=== PATIENT | female | born 1950 | race Caucasian/White ===

== ENCOUNTER 2016-11-08 14:31 | Inpatient (IN) | payer MEDICARE ==
[~2016-11-08] VITALS: Ht 162.6 cm; Wt 90.3 kg
[2016-11-08] MEDS ORDERED: FLUO10CA7 PO (14:56)
[2016-11-08] MEDS ORDERED: TRIA1CAP3 PO (14:56)
[2016-11-08] MEDS ORDERED: METF500T9 PO (14:56)
[2016-11-08] MEDS ORDERED: LEVO50TA5 PO (14:56)
[2016-11-08] MEDS ORDERED: ATOR20TA58 PO (14:56)
--- NOTE | 2016-11-08 15:03 | RAD ---
Indication: Chest pain. Time of exam 1457 hours. Correlation is made with prior study from 09/02/2009. FINDINGS: The heart size is normal. The lungs are clear. No pleural effusion or pneumothorax is identified. The pulmonary vascularity is normal. IMPRESSION: No acute abnormality detected.
[2016-11-08 15:14] LABS: BASO # 0.1 x10^3/uL (0.0-0.2); BASO % 1 % (0-3); EOS % 2 % (0-3); HEMATOCRIT 36.4 % (36.0-47.0); HEMOGLOBIN 11.9 g/dL (12.0-15.5); LYMPH # 1.7 x10^3/uL (1.0-4.8); LYMPH % 17 % (24-48); MEAN CORPUSCULAR HEMOGLOBIN 26 pg (25-35); MEAN CORPUSCULAR HGB CONC 33 g/dL (31-37); MEAN CORPUSCULAR VOLUME 78 fL (79-100); MONO % 7 % (0-9); NEUT % 74 % (31-73); PLATELET COUNT 476 x10^3/uL (140-400); RED BLOOD COUNT 4.64 x10^6/uL (3.50-5.40); RED CELL DISTRIBUTION WIDTH 15.7 % (11.5-14.5); WHITE BLOOD COUNT 10.4 x10^3/uL (4.0-11.0)
[2016-11-08] MEDS ORDERED: NITROGLYCERIN SUBLINGUAL 0.4 MG BOTTLE OF 25. SL PRN (15:15)
[2016-11-08 15:22] LABS: INR 1.1 (0.8-1.1); PROTHROMBIN TIME PATIENT 13.5 SEC (11.7-14.0)
[2016-11-08] MEDS ORDERED: ASPIRIN ENTERIC COATED 325 MG TABLET.DR. PO ONE (15:30)
[2016-11-08 15:35] LABS: CALCIUM 9.4 mg/dL (8.5-10.1); CREATININE 1.1 mg/dL (0.6-1.0); GFR 49.8; POTASSIUM 3.3 mmol/L (3.5-5.1)
[2016-11-08 15:49] LABS: ALBUMIN 3.7 g/dL (3.4-5.0); ALBUMIN/GLOBULIN RATIO 0.9 (1.0-1.7); MAGNESIUM 2.1 mg/dL (1.8-2.4); TOTAL BILIRUBIN 0.4 mg/dL (0.2-1.0); TOTAL PROTEIN 7.8 g/dL (6.4-8.2)
[2016-11-08] MEDS ORDERED: POTASSIUM CHLORIDE 20 MEQ TABLET.ER. PO ONE (16:00)
[2016-11-08] MEDS ORDERED: fentaNYL PF VIAL 100 MCG/2 ML VIAL IV PRN (16:00)
[2016-11-08] MEDS ORDERED: ONDANSETRON PF 4 MG/2 ML VIAL. IV PRN (16:00)
--- NOTE | 2016-11-08 16:05 | PHYS DOC ---
Past Medical History Past Medical History: Diabetes-Type II, GERD, High Cholesterol, Hypothyroid Past Surgical History: Cholecystectomy, Hysterectomy, Other Additional Past Surgical Histo: breast reduction Alcohol Use: None Drug Use: None Adult General Chief Complaint Chief Complaint: CHEST PAIN HPI HPI Patient is a 66 year old female presenting to the emergency department for evaluation of chest pain dyspnea on exertion and generalized fatigue and malaise. The generalized fatigue and malaise have been going on for the past 2 weeks and she says that she has lost 30 pounds the chest pain and dyspnea on exertion started 2 days ago and it has persisted. The chest pain is pressure and heaviness in the center of her chest with no radiation but makes her short of breath and diaphoretic but no nausea vomiting. He says that she has had a stress test in the past but does not know what it is or when it was done. She is in no obvious distress but she is hypertensive with some pressure sensation in her chest. Review of Systems Review of Systems Constitutional: Denies fever or chills [] Eyes: Denies change in visual acuity, redness, or eye pain [] HENT: Denies nasal congestion or sore throat [] Respiratory: Denies cough. + shortness of breath [] Cardiovascular: + CP GI: Denies abdominal pain, nausea, vomiting, bloody stools or diarrhea [] : Denies dysuria or hematuria [] Musculoskeletal: Denies back pain or joint pain [] Integument: Denies rash or skin lesions [] Neurologic: Denies headache, focal weakness or sensory changes [] Current Medications Current Medications Current Medications Medications (Trade) Dose Ordered Sig/[facility] Start Time Stop Time Status Last Admin Dose Admin Aspirin (Ecotrin) 325 mg 1X ONCE 11/08/16 15:30 11/08/16 15:31 DC Nitroglycerin (Nitrostat) 0.4 mg PRN Q5MIN PRN 11/08/16 15:15 Potassium Chloride (Klor-Con) 40 meq 1X ONCE 11/08/16 16:00 11/08/16 16:01 DC Allergies Allergies Allergies Coded Allergies Type Severity Reaction Last Updated Verified morphine Allergy Mild Nausea 11/08/16 Yes Physical Exam Physical Exam Constitutional: Well developed, well nourished, no acute distress, non-toxic appearance. [] HENT: Normocephalic, atraumatic, bilateral external ears normal, oropharynx moist, no oral exudates, nose normal. [] Eyes: PERRLA, EOMI, conjunctiva normal, no discharge. [] Neck: Normal range of motion, no tenderness, supple, no stridor. [] Cardiovascular:Heart rate regular rhythm, no murmur [] Lungs & Thorax: Bilateral breath sounds clear to auscultation [] Abdomen: Bowel sounds normal, soft, no tenderness, no masses, no pulsatile masses. [] Skin: Warm, dry, no erythema, no rash. [] Back: No tenderness, no CVA tenderness. [] Extremities: No tenderness, no cyanosis, no clubbing, ROM intact, no edema. [] Neurologic: Alert and oriented X 3, normal motor function, normal sensory function, no focal deficits noted. [] Psychologic: Affect normal, judgement normal, mood normal. [] Current Patient Data Vital Signs Vital Signs Date Time Temp Pulse Resp B/P (MAP) Pulse Ox O2 Delivery O2 Flow Rate FiO2 11/08/16 14:40 98.4 89 18 182/98 (126) 97 Room Air 98.4 Lab Values Laboratory Tests Test 11/08/16 14:45 White Blood Count 10.4 x10^3/uL (4.0-11.0) Red Blood Count 4.64 x10^6/uL (3.50-5.40) Hemoglobin 11.9 g/dL (12.0-15.5) L Hematocrit 36.4 % (36.0-47.0) Mean Corpuscular Volume 78 fL (79-100) L Mean Corpuscular Hemoglobin 26 pg (25-35) Mean Corpuscular Hemoglobin Concent 33 g/dL (31-37) Red Cell Distribution Width 15.7 % (11.5-14.5) H Platelet Count 476 x10^3/uL (140-400) H Neutrophils (%) (Auto) 74 % (31-73) H Lymphocytes (%) (Auto) 17 % (24-48) L Monocytes (%) (Auto) 7 % (0-9) Eosinophils (%) (Auto) 2 % (0-3) Basophils (%) (Auto) 1 % (0-3) Neutrophils # (Auto) 7.6 x10^3uL (1.8-7.7) Lymphocytes # (Auto) 1.7 x10^3/uL (1.0-4.8) Monocytes # (Auto) 0.7 x10^3/uL (0.0-1.1) Eosinophils # (Auto) 0.2 x10^3/uL (0.0-0.7) Basophils # (Auto) 0.1 x10^3/uL (0.0-0.2) Prothrombin Time 13.5 SEC (11.7-14.0) Prothrombin Time INR 1.1 (0.8-1.1) PTT 33 SEC (24-38) Sodium Level 141 mmol/L (136-145) Potassium Level 3.3 mmol/L (3.5-5.1) L Chloride Level 99 mmol/L (98-107) Carbon Dioxide Level 33 mmol/L (21-32) H Anion Gap 9 (6-14) Blood Urea Nitrogen 18 mg/dL (7-20) Creatinine 1.1 mg/dL (0.6-1.0) H Estimated GFR (Cockcroft-Gault) 49.8 BUN/Creatinine Ratio 16 (6-20) Glucose Level 148 mg/dL (70-99) H Calcium Level 9.4 mg/dL (8.5-10.1) Magnesium Level 2.1 mg/dL (1.8-2.4) Total Bilirubin 0.4 mg/dL (0.2-1.0) Aspartate Amino Transferase (AST) 55 U/L (15-37) H Alanine Aminotransferase (ALT) 61 U/L (14-59) H Alkaline Phosphatase 171 U/L (46-116) H Creatine Kinase 60 U/L (26-192) Troponin I Quantitative < 0.017 ng/mL (0.000-0.055) RV-Kpf-I-Type Natriuretic Peptide 42 pg/mL (0-124) Total Protein 7.8 g/dL (6.4-8.2) Albumin 3.7 g/dL (3.4-5.0) Albumin/Globulin Ratio 0.9 (1.0-1.7) L Thyroid Stimulating Hormone (TSH) 2.908 uIU/mL (0.358-3.74) Laboratory Tests 11/08/16 14:45 Laboratory Tests 11/08/16 14:45 EKG EKG Normal sinus rhythm at 90 beats per minutes with leftward axis no obvious ST elevation or depression and normal T waves. Radiology/Procedures Radiology/Procedures Indication: Chest pain. Time of exam 1457 hours. Correlation is made with prior study from 09/02/2009. FINDINGS: The heart size is normal. The lungs are clear. No pleural effusion or pneumothorax is identified. The pulmonary vascularity is normal. IMPRESSION: No acute abnormality detected. DICTATED and SIGNED BY: GERRY GARCIA MD DATE: 11/08/16 9546 Course & Med Decision Making Course & Med Decision Making Patient with typical chest pain so she was given nitroglycerin which helped her pain and aspirin as well. Given her age and colitides she will be admitted for further observation and treatment. Dragon Disclaimer Dragon Disclaimer This electronic medical record was generated, in whole or in part, using a voice recognition dictation system. Departure Departure Impression: Primary Impression: Chest pain Additional Impressions: LEAHY (dyspnea on exertion) Hypokalemia Transaminitis Disposition: ADMITTED INPATIENT Admitting Physician: Feng Gregory Condition: IMPROVED Referrals: ZEE ACE (PCP) Problem Qualifiers Primary Impression: Chest pain Chest pain type: unspecified Qualified Codes: R07.9 - Chest pain, unspecified TOVA BOSCH DO Nov 08, 2016 16:05
[2016-11-08 17:38] VITALS: BP 133/72
[2016-11-08 17:48] VITALS: BP 133/72
[2016-11-08 17:54] VITALS: BP 133/72
[2016-11-08] MEDS ORDERED: FLUO20CA8 PO (18:01)
[2016-11-08 19:30] VITALS: BP 120/73
[2016-11-08] MEDS ORDERED: ACETAMINOPHEN 325 MG TABLET. PO PRN (21:00)
[2016-11-08] MEDS ORDERED: ATORVASTATIN CALCIUM 20 MG TABLET PO SCH (21:00)
[2016-11-08 23:17] VITALS: BP 129/81
[2016-11-09 03:42] VITALS: BP 125/53
[2016-11-09 04:18] LABS: BASO # 0.1 x10^3/uL (0.0-0.2); BASO % 1 % (0-3); EOS % 3 % (0-3); HEMATOCRIT 34.8 % (36.0-47.0); HEMOGLOBIN 11.4 g/dL (12.0-15.5); LYMPH % 26 % (24-48); MEAN CORPUSCULAR HEMOGLOBIN 26 pg (25-35); MEAN CORPUSCULAR HGB CONC 33 g/dL (31-37); MEAN CORPUSCULAR VOLUME 78 fL (79-100); MONO % 8 % (0-9); NEUT % 63 % (31-73); PLATELET COUNT 411 x10^3/uL (140-400); RED BLOOD COUNT 4.47 x10^6/uL (3.50-5.40); RED CELL DISTRIBUTION WIDTH 16.3 % (11.5-14.5); WHITE BLOOD COUNT 7.6 x10^3/uL (4.0-11.0)
[2016-11-09 04:40] LABS: CALCIUM 9.3 mg/dL (8.5-10.1); GFR 55.6; POTASSIUM 3.2 mmol/L (3.5-5.1)
[2016-11-09 07:00] VITALS: BP 132/69
[2016-11-09] MEDS ORDERED: LEVOTHYROXINE 50 MCG TABLET PO SCH (07:00)
--- NOTE | 2016-11-09 07:47 | EKG ---
[facility] [address] [place] [address] Test Date: 2016-11-08 Test Time: 14:42:09 Pat Name: JAM WEI Department: Room: 3 1 Gender: F Equipment Specialist: : 1950 Requested By: TOVA BOSCH Order Number: [id number] Reading MD: Lopez Cash Measurements Intervals [place] Rate: 90 P: 29 HI: 190 QRS: -10 QRSD: 62 T: 20 QT: 382 QTc: 472 Interpretive Statements SINUS RHYTHM Electronically Signed On 11-09-2016 17:49:25 CDT by Lopez Cash
--- NOTE | 2016-11-09 08:00 | ACF ---
Admission Forms Criteria CHEST PAIN Clinical Indications for Admission to Inpatient Care (Place 'X' for any and all applicable criteria): Admission is indicated for chest pain and ANY ONE of the following(1)(2)(3)(4)(5 ): [ ]I. Angina with acute coronary syndrome (Also use Myocardial Infarction or Angina guideline) [ ]II. Hemodynamic instability [X]III. Angina needing acute intervention as indicated by ALL of the following( 11)(12): [X]a) Unstable angina is present as indicated by angina that is ANY ONE of the following: [X]i) New onset [ ]ii) Nocturnal [ ]iii) Prolonged at rest [ ]iv) Progressive [X]b) Angina warrants acute intervention as indicated by ANY ONE of the following: [ ]i) Recurrent angina (e.g, not responding as previously to treatment) [ ]ii) Angina at rest or with low-level activities despite initial medical therapy [ ]iii) New or presumably new ST-segment depression on ECG [ ]iv) Signs or symptoms of heart failure (eg, dyspnea, pulmonary edema) [ ]v) New or worsening mitral regurgitation [ ]vi) Hemodynamic instability [ ]vii) Dangerous arrhythmia (eg, sustained ventricular tachycardia) [ ]viii) History of percutaneous coronary intervention within 6 months [ ]ix) History of coronary artery bypass graft surgery [ ]x) SHERRY risk score of 2 or greater[A] [X]xi) History of Diabetes(14) [ ]xii) High-risk cardiac ischemia findings on noninvasive testing (e.g, echocardiogram, treadmill testing, nuclear scan) [ ]xiii) Chronic renal insufficiency (ie, estimated GFR less than 60 mL/min/1.732m) [ ]xiv) Left ventricular ejection fraction less than 40% [ ]IV. Evidence of NH (eg, cardiac biomarkers positive, ST-segment elevation on ECG) also use Myocardial Infarction Criteria Form. [ ]V. Pulmonary edema [ ]. Respiratory distress [ ]VII. Chest pain indicative of serious diagnosis other than coronary artery disease (eg, aortic dissection) [ ]VIII. Contraindications and/or Inappropriate clinical situations for Observational Care in patients with Chest Pain, when ANY ONE of the following is required: [ ]a) Patient with risk factor for pulmonary embolism, acute coronary syndrome and myocardial infarction (18) [ ]b) Patient with Pulmonary embolism require an average LOS of 4.3 days, therefore emergency department observation management is inappropriate 18,23 [ ]c) Painful condition/s in the elderly, have the highest rate of recidivism after emergency department observation management (10.8%) 20,21,22 [ ]d) Elevated cardiac biomarker requires intensive and exhaustive care (19) [ ]IX. General contraindications and/or Inappropriate clinical situations for Observational Care in patients with Chest Pain, when ANY ONE of the following is required: [ ]a) Prediction of prolongation of LOS based on ANY ONE of the following may be considered as a contraindication for observational care 2, 3, 4, 5, 6, 7, 8, 9, 10, 11 [ ]i) Age > 65 yrs. [ ]ii) Patient arriving by ambulance [ ]iii) Patient with high acuity [ ]iv) Patient requiring vital sign monitoring [ ]v) Patient on IV medication [ ]b) Systolic blood pressures 180mmHg 3,12 [ ]c) Patient with altered mental status including delirium and other alteration of consciousness, (3) [ ]d) Patient whose discharge disposition will be to a penitentiary home or rehabilitation home should not be managed in Emergency Department Observation Unit. CMS rule requires 3 days hospital stay before such placement. 3,13 [ ]e) Patient with failure to thrive due to broad array of etiologies 3,16,17 [ ]f) Inability to ambulate 3,14 Extended stay beyond goal length of stay may be needed for (1)(28): [ ]a) Specific condition diagnosed after evaluation (eg, pulmonary embolism, aortic dissection) [ ]b) Unstable angina [ ]c) Continued suspicion of acute coronary syndrome with inability to complete needed cardiac evaluation (eg, patient clinically unable to undergo stress testing) [ ]d) Myocardial infarction (Contents from ANGINA and CHEST PAIN clinical indications for admission to inpatient care have been integrated in this form) The original [email or web address] content created by [email or web address] has been revised. The portions of the content which have been revised are identified through the use of italic text or in bold, and [employer] has neither reviewed nor approved the modified material. All other unmodified content is copyright [employer]. Please see references footnoted in the original [facility] edition 2016 Admission Criteria Met?: Yes ADRIENNE WOOD Nov 09, 2016 08:00
--- NOTE | 2016-11-09 08:06 | PDOC ---
Provider Note Provider Note Full note to follow. atypical chest pain, palpitations, dizziness. Last stress 2 yrs ago. Multiple risk factors, HTN, Chol and age/obesity Will repeat stress. Consider outpt event monitor Will f/u after stress results. Thanks for consult. JATIN JEFF MD Nov 09, 2016 08:06
[2016-11-09] MEDS ORDERED: TRIAMTERENE/HCTZ 37.5/25MG TABLET. PO SCH (09:00)
[2016-11-09] MEDS ORDERED: FLUoxetine HCL 20 MG CAPSULE PO SCH (09:00)
[2016-11-09] MEDS ORDERED: POTASSIUM CHLORIDE 20 MEQ TABLET.ER. PO SCH (09:00)
--- NOTE | 2016-11-09 09:52 | PDOC ---
Provider Note Provider Note Patient seen. History and Physical and combined discharge summary dictated. See dictation# [id number]. Ok per database specialist to get stress test as outpatient with . KRISTIAN CARMICHAEL MD Nov 09, 2016 09:52
--- NOTE | 2016-11-09 09:54 | DISCH ---
DISCHARGE INSTRUCTIONS Condition on Discharge Condition on Discharge: Stable Activity After Discharge Activity Instructions for Disc: Activity as tolerated Diet after Discharge Diet after Discharge: Cardiac, Diabetic No Calorie Level Diet Texture: Regular Checks after Discharge Checks after discharge: Check blood sugar, ac/hs Contacting the DRJesus after DC Call your doctor for: Concerns you may have Follow-Up Follow up with: in 3-4 days. KRISTIAN CARMICHAEL MD Nov 09, 2016 09:54
[2016-11-09] MEDS ORDERED: POTA20TA4 PO (09:56)
[2016-11-09] MEDS ORDERED: ASPI81TA9 PO (09:56)
[2016-11-09] MEDS ORDERED: ASPIRIN ENTERIC COATED 81 MG TABLET.DR. PO SCH (10:00)
[2016-11-09 10:15] VITALS: BP 148/81
[2016-11-09 10:17] VITALS: BP 138/76
[2016-11-09 10:19] VITALS: BP 94/57
--- NOTE | 2016-11-09 10:27 | HP ---
ADMIT DATE: 11/08/2016 This is a combined history and physical and discharge summary note. PRIMARY CARE PHYSICIAN: Dr. Velasco. HISTORY OF PRESENT ILLNESS: This 66-year-old female presented to [facility] because of symptoms of chest pains on and off along with dyspnea, occasional dizziness, especially when she gets out of bed, and occasional episodes of palpitations and sweating, sometimes, at rest, even when she is at home in bed at night. She also has had some increase in anxiety. She denies any symptoms of heartburn, nausea, vomiting, abdominal pain, fever, cold, cough, or congestion. The patient has seen Dr. Perry at [facility] 2 years ago and her stress test at that time was negative. This morning, she is feeling better and she does not have any symptoms. The patient was admitted to the hospital because of chest pains. REVIEW OF SYSTEMS: Systems review as noted in the history of present illness. Other systems reviewed and are negative. Her symptoms are not usually related to exertion. Symptoms have been started 2 weeks ago. The patient is feeling better now. PAST MEDICAL HISTORY: The patient has a history of diabetes type 2, gastroesophageal reflux disease, hyperlipidemia, and hypothyroidism. PAST SURGICAL HISTORY: History of cholecystectomy and hysterectomy and breast reduction surgery. SOCIAL HISTORY: No history of smoking, alcoholism, or drug abuse. FAMILY HISTORY: Negative for any significant conditions. The patient denies any heart problems or stroke in the family. ALLERGIES: THE PATIENT IS ALLERGIC TO MORPHINE THAT CAUSES NAUSEA. MEDICATIONS: I reviewed the medications. PHYSICAL EXAMINATION: VITAL SIGNS: Temperature 97.7, pulse 90 per minute, respirations 18 per minute, blood pressure 132/69. GENERAL: The patient is alert, oriented, not in any acute distress. She is obese. SKIN: Warm and dry. There is no cyanosis. HEENT: Pupils reacting to light. Conjunctivae pink. Sclerae white. HEENT: Unremarkable except for slight coating on the tongue. NECK: Supple. JVP normal. No thyromegaly. Trachea midline. LUNGS: Clear. CARDIOVASCULAR: S1, S2 regular, . ABDOMEN: Soft, nontender, no guarding, no rigidity. Bowel sounds present. EXTREMITIES: No edema. CENTRAL NERVOUS SYSTEM: Moves all extremities, alert, oriented, slightly anxious, no acute changes noted. LABORATORY FINDINGS: Chest x-ray showed no acute changes. Sodium 141; potassium of 3.3 yesterday, is 3.2 today; glucose 148; BUN 18; creatinine 1.1. AST 55, ALT 61, alkaline phosphatase 171. Troponin less than 0.017, total protein 7.8, albumin 3.7. Potassium today is 3.2, glucose 200 and 157. Troponin, repeat level is 0.017. TSH 2.908. Reportedly, I am not able to review the EKG, but it did not show any acute changes. IMPRESSION: 1. Chest pain. This may be atypical per costume technician. 2. Hypokalemia. 3. Elevated LFTs. 4. Diabetes mellitus type 2. 5. Anxiety. 6. Hypothyroidism. TSH stable. PLAN: Regional Branch Manager recommended stress test and event recorder. The patient states that she is feeling fine and she would like to actually be discharged now and see Dr. Perry, her costume technician as outpatient, and get whatever cardiac workup that is needed. I have advised her to continue potassium chloride. I have given her a prescription for potassium chloride 20 mEq daily. Continue other home medications. Follow up with Dr. Velasco in 4 days and follow up LFTs and potassium level. She will also probably need an event recorder and a stress test. I have also advised her to start on baby aspirin 81 mg daily. Avoid exertion until cardiac workup is finished. Call if symptoms persist or recur. DISPOSITION: Home. For other details, please refer to the discharge orders. Activity as tolerated to avoid major exertion. MEDICATION LIST: Please refer to the discharge medication list. KRISTIAN CARMICHAEL MD DR: VAISHNAVI/rebel JOB#: [id number] / [id number] ZEE Porras VINAYA MD
[2016-11-09] MEDS ORDERED: metFORMIN XR 500 MG TAB.ER.24H PO SCH (17:00)
--- NOTE | 2016-11-09 19:03 | CONS ---
DATE OF CONSULTATION: 11/09/2016 REASON FOR CONSULTATION: Chest pain. HISTORY OF PRESENT ILLNESS: A 66-year-old woman who presents to the hospital in the setting of chest pain along with various degree of dyspnea. She also reports some occasional palpitations and dizziness. In this setting, due to persistent symptoms she presented to the hospital. She has not had any syncope. With respect to cardiovascular disease, she does not recall any prior coronary interventions. She had a stress test approximately [address] Perry at [facility]. This morning she reports her symptoms are better, although not completely resolved. Her main issue at this time appears to be dizziness at various times throughout the day. She does not have any exertional angina or dyspnea to speak of. PAST MEDICAL HISTORY: Hypertension, dyslipidemia, GERD, diabetes, obesity. SOCIAL HISTORY: No alcohol, tobacco or illicit drug use. FAMILY HISTORY: Noncontributory. REVIEW OF SYSTEMS: Negative for 10 out of 14 systems reviewed, unless otherwise mentioned above in HPI. ALLERGIES: MORPHINE. CURRENT CARDIOVASCULAR MEDICATIONS: 1. Aspirin 81 mg daily. 2. Triamterene/hydrochlorothiazide 37.5/25. 3. Atorvastatin 20 mg daily. PHYSICAL EXAMINATION: VITAL SIGNS: Afebrile, 69, 94/57, 94% on room air. GENERAL: She is alert and oriented, in no acute distress. HEAD AND NECK: Unremarkable. HEART: Regular rate and rhythm without any murmurs, rubs, gallops. LUNGS: Clear to auscultation. ABDOMEN: Soft, nontender, nondistended. EXTREMITIES: No clubbing, cyanosis or edema. NEUROLOGIC: No focal deficits. MUSCULOSKELETAL: No trauma. DIAGNOSTIC STUDIES: Hemoglobin 11.4, platelets 411. Troponin negative x 2, potassium 3.2, creatinine 1.0, INR 1.1. Chest x-ray is negative for any acute pathology. EKG is unremarkable and does not reveal any evidence of ST-T wave changes, cannot rule out prior inferior infarct. IMPRESSION: 1. Atypical chest pain. 2. Palpitations/dizziness. 3. Hypertension. 4. Dyslipidemia. 5. Obesity. RECOMMENDATIONS: I had a discussion with the patient in regards to her risk factors and atypical symptoms. She certainly appears to require an event monitor to rule out any significant arrhythmia as her presenting pathology. In the setting of her multiple risk factors and approximately 2 years since her last stress test, we discussed possibly obtaining a stress test. After initial evaluation, I was told by the nurse that the patient wishes to go home and given that her cardiac enzymes are negative and her EKG is not acute, it was reasonable for her to obtain an outpatient stress test. Thank you for this consultation. Please call with any further questions. JATIN JEFF MD DR: YUNIOR/rebel JOB#: [id number] / [id number] FATIMAH
== END 2016-11-09 10:45 | disposition home or self-care (01) | DRG 313 ==
LOC: ER 14:31 → 6 SOUTH 16:19
PROVIDERS: ADMIT Internal Medicine; ATTEND Internal Medicine
DX: R07.89 Other chest pain (principal); E78.00 Pure hypercholesterolemia, unspecified; E78.5 Hyperlipidemia, unspecified; E11.9 Type 2 diabetes mellitus without complications; I10 Essential (primary) hypertension; E03.9 Hypothyroidism, unspecified; E87.6 Hypokalemia; K21.9 Gastro-esophageal reflux disease without esophagitis; F41.9 Anxiety disorder, unspecified; E66.9 Obesity, unspecified; Z90.49 Acquired absence of other specified parts of digestive tract; Z90.710 Acquired absence of both cervix and uterus; Z88.5 Allergy status to narcotic agent; Z68.34 Body mass index [BMI] 34.0-34.9, adult; Z79.899 Other long term (current) drug therapy
CPT/HCPCS: 36415; 71010; 80048; 80053; 82550; 82962; 83735; 83880; 84443; 84484; 85027; 85610; 85730; 93005; 99285-25

== ENCOUNTER → 2017-03-20 | Outpatient (CLI) | payer MEDICARE ==
[~2017-03-20] MED LIST: ASPI-612 PO; ATOR20TA58 PO; FLUO10CA7 PO; FLUO20CA8 PO; LEVO50TA5 PO; METF500T9 PO; POTA20TA4 PO; TRIA1CAP3 PO
--- NOTE | 2017-03-20 16:27 | RAD ---
Indication pain. AP and lateral views of both the right and left calcaneus were obtained. Views of the right calcaneus demonstrate a very large spur off the posterior and superior portion of the calcaneus. A smaller spur is seen at the heel. No acute finding is seen. Views of the left calcaneus demonstrate a moderately large spur off the posterior and superior portion of the calcaneus, not as large as on the contralateral right side. A smaller spur is seen at the heel. No acute finding is seen. IMPRESSION: Moderately large spurs involving both the right and left calcaneus as outlined above
== END | disposition home or self-care (01) ==
LOC: LAB 13:00
PROVIDERS: ATTEND Family Medicine
DX: M77.32 Calcaneal spur, left foot (principal); M77.31 Calcaneal spur, right foot
CPT/HCPCS: 73650

== ENCOUNTER → 2017-03-30 | Outpatient (CLI) | payer MEDICARE ==
[~2017-03-30] MED LIST changes: +IBUP-1060 PO; +IOHEXOL 180 MG/ML 10 ML VIAL. ONE; +TRAM50TA PO; +methylPREDNISolone ACETATE 40 MG/ML VIAL. ONE; +methylPREDNISolone ACETATE 80 MG/ML VIAL. ONE
--- NOTE | 2017-03-30 18:42 | PAIN ---
DATE OF SERVICE: 03/30/2017 INITIAL CONSULTATION CHIEF COMPLAINT: Low back pain. HISTORY OF PRESENT ILLNESS: This is a 66-year-old female who presents with history of pain in low back and into the bilateral lower extremities, right greater than left, with radiation to the lateral thighs, posterior thighs as well as the medial lower leg. Again, more intermittent than the back pain, which is present at all times, but certainly present bilaterally, worse on the right. The patient reports it has been going on for many years, worse over the past year or so. She reports she has had some chiropractic treatment in the past. No formal physical therapies recently. She is doing some stretching on her own that they have given her at her chiropractic's office. The patient has tried tramadol, ibuprofen, cyclobenzaprine, all of which were helpful to some extent by about 20% to 30%. She has had all 3 of these as early as yesterday. The patient reports it awakens her from sleep at night occasionally, but not every night. It does not affect her bowel or bladder control, but does affect her ability to walk significantly. The patient reports the right side again becoming more weak more quickly, much more easily fatigued on the left side. The patient describes the pain as constant, sharp, stabbing, shooting, throbbing with tingling, radiating numbness as well as burning and aching in the low back bilaterally and into the right leg greater than left. The patient rates her disability rate from 0-10, 10 being the worst and 8 with family and home responsibilities, social activity and occupation, 10 with recreation, 5 with self care and life support activities. The patient did have an MRI scan that is dated 02/2009, showing multilevels of disk degenerative disease including disk protrusions and neural foraminal narrowing on the left side at L4-L5 and L5-S1. The patient did have some plain films more recently that were in 2014, showing severe degenerative findings at the lower facet joints as well as disk space narrowing, greatest on the right at L3-L4 and moderately large anterolateral osteophytes present at multiple levels, particularly on the right at L2-L3 and on the left L5-S1. PAST MEDICAL HISTORY: Significant for type 2 diabetes, hypothyroidism, anemia, hypertension, hyperlipidemia, dizziness, arthritis. PREVIOUS SURGERY: Includes hysterectomy, breast reduction, cholecystectomy and left knee surgery through a scope in 2006. CURRENT MEDICATIONS: Include atorvastatin, triamterene, levothyroxine, tramadol, ibuprofen, metformin and fluoxetine. ALLERGIES: THE PATIENT IS ALLERGIC TO MORPHINE. FAMILY HISTORY: Significant for anemia. SOCIAL HISTORY: The patient does not smoke, does not drink alcohol. She is single, reports she lives on her own locally in [place], [place], and is currently retired. REVIEW OF SYSTEMS: The patient's review of systems is positive for those items mentioned in history of present illness. All systems reviewed and otherwise negative. It is complete, full and well documented on the patient's chart. PHYSICAL EXAMINATION: VITAL SIGNS: The patient's blood pressure 179/115, pulse is 111, respirations 18, temperature 98.2 degrees Fahrenheit, height is 5 feet 4 inches, weight is 201 pounds. GENERAL: The patient is awake, alert, oriented, appropriate, very pleasant demeanor. HEENT: Head shows normocephalic, atraumatic. Extraocular movements are intact, symmetrical. Oral cavity: Mucous membranes moist and pink. Dentition is intact. NECK: Shows anterior throat supple without palpable lymphadenopathy noted. Swallow reflex is symmetrical. CHEST: Shows normal on inspection. Breath sounds clear to auscultation bilaterally. HEART: Shows S1 and S2 clear. No murmurs auscultated. ABDOMEN: Obese, soft, nontender, nondistended. No palpable organomegaly. No rebound or guarding demonstrated. BACK: Shows spine grossly midline, normal-appearing cervical lordotic curvature, thoracic kyphotic curvature and lumbar lordotic curvature. No previous bruises, lesions, rashes or scars are noted. The patient shows some moderate tenderness with palpation in the lumbar paraspinous musculature bilaterally, but is symmetrical without evidence of atrophy or hypertrophy. The patient's back shows no tenderness over the spinous processes, sacrum or sacroiliac regions. The patient has good rotation and motion of the lumbar spine, both laterally as well as extension and flexion without difficulty, greater than 10 degrees right and left and extension greater than 10 degrees, forward flexion to 45 degrees without pain reported. LOWER EXTREMITIES: Showed deep tendon reflexes at 1+ in the patellar and tendocalcaneus tendons. Motor exam is strong with 5/5 dorsiflexion, extension, quadriceps and hamstring flexion. Peripheral pulses are 1+ posterior tibial and dorsalis pedis pulses. No peripheral edema is noted. No clubbing, no cyanosis. Lower extremities are warm and dry to touch, equal in color and appearance. Straight leg raise noted to be positive on the right at about 40-45 degrees, left is negative. This is decreased with knee flexion on the right side, but not completely relieved. Gaenslen and Fareed maneuvers are negative bilaterally for pain reproduction. The patient is able to stand on her toes without significant difficulty or loss of balance. She is walking with a slight shuffling gait, appears to favor the right lower extremity when she is ambulating, but not using any assistive devices such as canes or walkers to ambulate. IMPRESSION: 1. This is a 66-year-old female with a many year history of low back and bilateral lower extremity pain, worse on the right, worse over the past 1 year. 2. Old spine films and MRIs as noted. 3. Hypertension. 4. Type 2 diabetes. 5. Arthritis. PLAN: Options were discussed with the patient including conservative medical management, physical therapy, interventional techniques, she would like to pursue interventional techniques. We discussed a lumbar epidural steroid injection using description as well as anatomical models to describe the procedure. Risks were discussed including but not limited to bleeding, infection, possibility of epidural hematoma and subsequent neurologic compromise, dural puncture, headaches, spinal cord and/or nerve damage, side effects of steroid medication and poor results regarding pain control. The patient understands and wishes to proceed. The patient will return to clinic in approximately 2 weeks for followup. She was counseled on return appointment, activity level and side effects to be aware of. DIAGNOSES: Lumbar radiculopathy with lumbar degenerative disk disease. PROCEDURES: Lumbar epidural steroid injection in translaminar approach at the L4-L5 level using C-arm fluoroscopic guidance, a sterile prep and drape using local anesthetic. MEDICATIONS INJECTED: Total of 120 mg Depo-Medrol, plus 10 mL of preservative-free normal saline and 2 mL Isovue for contrast. CONDITION AT DISCHARGE: Stable. The patient tolerated procedure well, had no complications. The patient will follow up in approximately 2 weeks as noted. Discussed the patient's blood pressure, she will follow up with her primary care physician regarding this as it was elevated on two different readings in our office today. The patient also will check her blood sugar and was warned that this may increase after the procedure as well. ANGELLA MACK MD DR: ROM/rebel JOB#: [id number] / [id number] ZEE Porras
== END | disposition home or self-care (01) ==
LOC: PNCL 08:24
PROVIDERS: ATTEND Anesthesiology
DX: M51.16 Intervertebral disc disorders with radiculopathy, lumbar region (principal); E11.9 Type 2 diabetes mellitus without complications; E03.9 Hypothyroidism, unspecified; D64.9 Anemia, unspecified; I10 Essential (primary) hypertension; E78.5 Hyperlipidemia, unspecified; M19.91 Primary osteoarthritis, unspecified site; E78.00 Pure hypercholesterolemia, unspecified; Z90.710 Acquired absence of both cervix and uterus; Z90.49 Acquired absence of other specified parts of digestive tract; Z88.6 Allergy status to analgesic agent; Z87.39 Personal history of other diseases of the musculoskeletal system and connective tissue
CPT/HCPCS: 62323; J1030; J1040

== ENCOUNTER → 2017-09-16 | Outpatient (CLI) | payer MEDICARE ==
[~2017-09-16] MED LIST changes: -ASPI-612 PO; -ATOR20TA58 PO; -FLUO10CA7 PO; -FLUO20CA8 PO; -IBUP-1060 PO; +IOHEXOL 180 MG/ML 10 ML VIAL.; -IOHEXOL 180 MG/ML 10 ML VIAL. ONE; -LEVO50TA5 PO; -METF500T9 PO; -POTA20TA4 PO; -TRAM50TA PO; -TRIA1CAP3 PO; +methylPREDNISolone ACETATE 40 MG/ML VIAL.; -methylPREDNISolone ACETATE 40 MG/ML VIAL. ONE; +methylPREDNISolone ACETATE 80 MG/ML VIAL.; -methylPREDNISolone ACETATE 80 MG/ML VIAL. ONE
== END | disposition home or self-care (01) ==
LOC: PNCL 11:16
DX: M51.16 Intervertebral disc disorders with radiculopathy, lumbar region (principal)
CPT/HCPCS: 62323; J1030; J1040; Q9965

== ENCOUNTER → 2018-01-21 | Outpatient (CLI) | payer MEDICARE ==
[~2018-01-21] MED LIST changes: +ASPI-612 PO; +ATOR20TA58 PO; +FLUO10CA7 PO; +FLUO20CA8 PO; +IBUP-1060 PO; -IOHEXOL 180 MG/ML 10 ML VIAL.; +LEVO50TA5 PO; +METF500T9 PO; +POTA20TA4 PO; +TRAM50TA PO; +TRIA1CAP3 PO; -methylPREDNISolone ACETATE 40 MG/ML VIAL.; -methylPREDNISolone ACETATE 80 MG/ML VIAL.
--- NOTE | 2018-01-21 16:40 | RAD ---
MR of the left shoulder Indication: Left shoulder pain after a fall with dislocation 2 months ago. Technique: Standard multiplanar sequences are obtained. Findings: Artifact: Mild motion degradation Acromioclavicular joint: Mildly degenerative. Rotator cuff: * Supraspinatus-infraspinatus tendon: Complete full-thickness rupture of the supraspinatus and anterior infraspinatus tendon. Retraction measures 3 cm. Tendinosis and partial tearing through the posterior infraspinatus tendon. Acute intramuscular edema, greatest at the infraspinatus. * Subscapularis tendon: High-grade tear * Muscle bulk: Moderate atrophy with volume loss and fatty infiltration. * Subacromial subdeltoid bursa: Mild effusion. Fluid: Small glenohumeral effusion. Glenohumeral cartilage: Mild degenerative change. Labrum: No evidence of labral detachment. Biceps tendon: Medial dislocation, into the anterior glenohumeral joint. Bones: Marrow change with edema at the greater tuberosity, compatible with marrow contusion or nondisplaced fracture. Soft tissue: No acute findings. Impression: 1. Large rotator cuff tear. Complete retracted rupture of supraspinatus and anterior infraspinatus tendon, high-grade subscapularis tendon tear. 2. Medial biceps tendon dislocation. 3. Abnormality at the greater tuberosity of the humerus, compatible with marrow contusion or nondisplaced fracture. Electronically signed by: Sheldon Nelson MD (01/21/2018 4:35 PM) [email or web address]
== END | disposition home or self-care (01) ==
LOC: MRI 13:45
PROVIDERS: ATTEND Physician Assistant Surgical
DX: S46.012A Strain of muscle(s) and tendon(s) of the rotator cuff of left shoulder, initial encounter (principal); W19.XXXA Unspecified fall, initial encounter; Y92.89 Other specified places as the place of occurrence of the external cause; Y93.89 Activity, other specified; Y99.8 Other external cause status
CPT/HCPCS: 73221

== ENCOUNTER → 2018-05-26 | Outpatient (CLI) | payer MEDICARE ==
[~2018-05-26] MED LIST changes: +IOHEXOL 180 MG/ML 10 ML VIAL. ONE; +methylPREDNISolone ACETATE 40 MG/ML VIAL. ONE; +methylPREDNISolone ACETATE 80 MG/ML VIAL. ONE
--- NOTE | 2018-05-26 20:05 | PAIN ---
DATE OF SERVICE: 05/26/2018 DIAGNOSIS: Lumbar radiculopathy with lumbar degenerative disk disease. HISTORY OF PRESENT ILLNESS: The patient is a 67-year-old female who returns for followup, last seen 09/16/2017. The patient was doing very well after last injection, near 100% improvement, reports the pain began to return now over about the last 3-4 weeks. The patient reports it in the low back, more in the right lower extremity posterior lateral thigh, lateral anterior thigh, medial thigh, but mostly across the low back. The patient reports to 8-9 on a scale of 10 on average and at its worst, is a 7 at its least and is an 8 today. The patient reports it is aching, sharp, shooting, stabbing, becoming more constant and more severe, more unbearable. Initially, she was increasing activity with greater ease and comfort, walking greater distances, doing greater activities at home and traveling with greater ease and comfort, now the pain is beginning to return. It is waking her from sleep at night about every 2-3 hours. She needs to reposition and get back to sleep, but it is still quite bothersome. The patient reports no new motor or sensory deficits, no new bowel or bladder incontinence or other complaints. PHYSICAL EXAMINATION: VITAL SIGNS: The patient's blood pressure 154/82, pulse 77, respirations 18, temperature 97.6 degrees Fahrenheit, height is 5 feet 11 inches, weight 190 pounds. GENERAL: The patient is awake, alert, oriented, appropriate, very pleasant demeanor. HEENT: Head shows normocephalic, atraumatic. Extraocular movements are intact and symmetrical. Oral cavity: Mucous membranes moist and pink. Dentition intact. NECK: Shows anterior throat supple without palpable lymphadenopathy noted. Swallow reflex symmetrical. CHEST: Shows normal with inspection. Breath sounds clear to auscultation bilaterally. HEART: Shows S1, S2 clear. No murmurs auscultated. ABDOMEN: Soft, nontender, nondistended. No palpable organomegaly is noted. No rebound or guarding demonstrated. BACK: Shows spine grossly in the midline. Normal appearing thoracic kyphosis. Some slight flattening of lumbar lordotic curvature. Lumbar paraspinous muscle shows symmetrical on inspection. On palpation shows some moderate tenderness but only diffusely without significant radiation. EXTREMITIES: The patient's lower extremities show deep tendon reflexes at 1+ in the patellar and tendo calcaneus tendons are equal. Motor exam is strong with dorsiflexion, extension, quadriceps and hamstring flexion all rated at 5/5 and equal. Peripheral pulses are 1+ posterior tibial. No peripheral edema is noted. Options were discussed with the patient. The patient's old chart was reviewed as her current medication regimen updated. Current review of systems updated today as well. We will proceed with a second in the series of lumbar epidural steroid injection today with fluoroscopic guidance. Risks were again discussed including, but not limited to bleeding, infection, possibility of epidural hematoma and subsequent neurological compromise, dural puncture, headaches, spinal cord and/or nerve damage, side effects of steroid medication and poor results regarding pain control. The patient understands and wished to proceed. The patient to return to clinic in approximately 2 weeks for followup, was counseled as to return appointment, activity level and side effects to be aware of. DIAGNOSIS: Lumbar radiculopathy with lumbar degenerative disk disease. PROCEDURE: Lumbar epidural steroid injection, translaminar approach L4-L5 level using C-arm fluoroscopic guidance under sterile prep and drape using local anesthetic. MEDICATION INJECTED: A total of 120 mg Depo-Medrol plus 10 mL of preservative-free normal saline and 2 mL of Isovue for contrast. CONDITION AT DISCHARGE: Stable. The patient tolerated the procedure well, had no complications. ANGELLA MACK MD DR: ROM/rebel JOB#: [id number] / [id number]
== END | disposition home or self-care (01) ==
LOC: PNCL 12:54
PROVIDERS: ATTEND Anesthesiology
DX: M51.16 Intervertebral disc disorders with radiculopathy, lumbar region (principal); Z88.5 Allergy status to narcotic agent; Z79.899 Other long term (current) drug therapy
CPT/HCPCS: 62323; J1030; J1040; Q9965

== ENCOUNTER → 2018-06-16 | Outpatient (CLI) | payer MEDICARE ==
[~2018-06-16] MED LIST changes: +ACET500T68 PO; +Vitamin B12 inj
--- NOTE | 2018-06-16 18:11 | PAIN ---
DATE OF SERVICE: 06/16/2018 DIAGNOSES: Lumbar radiculopathy with lumbar degenerative disk disease. HISTORY OF PRESENT ILLNESS: The patient is a 67-year-old female who returns for followup status post lumbar epidural steroid injection x 2, most recently 05/26/2018. Prior to that was 09/2017. The patient did very well with about 50% improvement overall, about 90% initially, but the pain has returned now in the low back and right lower extremity. The patient reports it is in the posterior gluteus, posterolateral thigh, lateral anterior thigh, medial thigh, medial knee on the right side. The patient reports it is tingling at times, a stabbing pain in the back, aching and sharp alternating. The patient reports it is worse when she gets up out of a chair or bending over to the left side and she feels it on the right. The patient reports it is 7 on a scale of 10 at all times, average, worst and least and is a 7/10 today. The patient reports no new motor or sensory deficits. No new bowel or bladder incontinence or other complaints. PHYSICAL EXAMINATION: VITAL SIGNS: The patient's blood pressure is 139/90, pulse 88, respirations are 20, temperature is 97.1 degrees Fahrenheit, and weight is 188 pounds. GENERAL: The patient is awake, alert, oriented, appropriate, very pleasant demeanor. HEENT: Exam shows normocephalic, atraumatic. Extraocular movements are intact and symmetrical. Oral cavity: Mucous membranes moist and pink. Dentition is intact. NECK: Shows anterior throat supple without palpable lymphadenopathy noted. Swallow reflex is symmetrical. CHEST: Shows normal on inspection. Breath sounds are clear to auscultation bilaterally. HEART: Shows S1, S2 clear. No murmurs auscultated. ABDOMEN: Soft, nontender, nondistended. No palpable organomegaly is noted. No rebound or guarding demonstrated. BACK: Shows spine grossly in the midline, normal appearing thoracic kyphosis and minor flattening of lumbar lordotic curvature. Lumbar paraspinous muscle shows symmetrical on inspection. On palpation shows some moderate tenderness diffusely in the lumbar paraspinous musculature only in the low lumbar distribution without radiation or without trigger points. No tenderness over the spinous processes, sacrum or sacroiliac regions. The patient has good rotational motion of lumbar spine, both laterally greater than 10 degrees right and left as well as extension greater than 10 degrees, forward flexion 45 degrees without difficulty. EXTREMITIES: Lower extremities show deep tendon reflexes 1+ patella and tendo calcaneus tendons. Motor exam is strong with 5/5 dorsiflexion, extension, quadriceps and hamstring flexion and intact and symmetrical. Peripheral pulses are 1+ posterior tibia. No peripheral edema is noted bilaterally. Options were discussed with the patient. The patient's old chart was reviewed as is her current medication regimen updated. Current review of systems is updated today as well and we will proceed with a third in the series of lumbar epidural steroid injection today with fluoroscopic guidance. Risks were again discussed including, but not limited to bleeding, infection, possibility of epidural hematoma, subsequent neurologic compromise, dural puncture, headaches, spinal cord and/or nerve damage, side effects of steroid medication and poor results regarding pain control. The patient understands and wished to proceed. The patient will return to the clinic in approximately 2 weeks for followup, was counseled on return appointment, activity level and side effects to be aware of. DIAGNOSES: Lumbar radiculopathy with lumbar degenerative disk disease. PROCEDURE: Lumbar epidural steroid injection, translaminar approach at L4-L5 level using C-arm fluoroscopic guidance under sterile prep and drape using local anesthetic. MEDICATION INJECTED: A total of 120 mg Depo-Medrol plus 10 mL of preservative-free normal saline and 2 mL of Isovue for contrast. CONDITION AT DISCHARGE: Stable. The patient tolerated the procedure well, had no complications. ANGELLA MACK MD DR: ROM/rebel JOB#: [id number] / [id number]
== END | disposition home or self-care (01) ==
LOC: PNCL 12:55
PROVIDERS: ATTEND Anesthesiology
DX: M51.16 Intervertebral disc disorders with radiculopathy, lumbar region (principal); Z88.5 Allergy status to narcotic agent
CPT/HCPCS: 62323; J1030; J1040; Q9965

== ENCOUNTER → 2018-08-03 | Outpatient (CLI) | payer MEDICARE ==
[~2018-08-03] MED LIST changes: -IOHEXOL 180 MG/ML 10 ML VIAL. ONE; +LEVO25TA55 PO; +METO-239 PO; +METO25TA4 PO; +NITR0.4T SL; +POTA10TA12 PO; +PRAS10TA9 PO; -methylPREDNISolone ACETATE 40 MG/ML VIAL. ONE; -methylPREDNISolone ACETATE 80 MG/ML VIAL. ONE
--- NOTE | 2018-08-03 14:47 | RAD ---
Examination: MRI of the left shoulder without contrast HISTORY: History of left arm pain, status post rotator cuff repair, limited range of motion COMPARISON: 01/21/2018 TECHNIQUE: Multiplanar, multisequence MR imaging of the left shoulder were performed without contrast. FINDINGS: Examination is very limited due to significant motion artifact. The long head of the biceps tendon could not be identified within the bicipital groove due to significant motion artifact. Surgical changes identified in the rotator cuff there is likely full-thickness tear of the subscapularis, supraspinatus tendon with tendon retractions medially to the level of the glenoid. The infraspinatus tendon may be intact however examination is extremely limited due to motion artifact. There is moderate fatty atrophic changes of the subscapularis, supraspinatus, infraspinatus tendons with loss of muscle bulk. Mild degenerative changes identified in the acromioclavicular joint. The acromion is type II. Evaluation the labrum is limited on this examination. There is a 1.2 cm soft tissue calcification or calcified focus abutting the infraspinatus tendon, best visualized on series 5 image #2. Small shoulder joint effusion. IMPRESSION: 1. Extremely limited examination due to significant motion artifact. Suspect full-thickness tears of the subscapularis and supraspinatus tendons with tendon retraction. Recommend MR arthrogram for further evaluation. 2. The long head of the biceps tendon could not be identified within the bicipital groove due to significant motion artifact. There is a 1.2 cm soft tissue calcification or calcified focus abutting the infraspinatus tendon, best visualized on series 5 image #2. Pain femur radiograph or CT may be useful. Electronically signed by: Gael Oliveros MD (08/03/2018 2:44 PM) [facility]
== END | disposition home or self-care (01) ==
LOC: MRI 13:13
PROVIDERS: ATTEND Orthopaedic Surgery Sports Medicine
DX: M25.412 Effusion, left shoulder (principal); M89.8X1 Other specified disorders of bone, shoulder
CPT/HCPCS: 73221

== ENCOUNTER → 2018-08-11 | Outpatient (CLI) | payer MEDICARE ==
--- NOTE | 2018-08-11 14:52 | RAD ---
DATE: 08/11/2018 EXAM: MAMMO SHANNAN SCREENING BILATERAL HISTORY: Routine screening COMPARISON: 07/25/2016 This study was interpreted with the benefit of Computerized Aided Detection (CAD). Breast Density: FATTY The breast parenchyma is primarily fatty replaced. Breast parenchyma level density A. FINDINGS: 2-D and 3-D tomosynthesis imaging was performed in CC and MLO projections. Minimal breast nodularity is unchanged. No new or enlarging breast densities are seen. Minimal benign type calcification is present. No suspicious microcalcifications have developed. IMPRESSION: Stable mammograms without evidence of malignancy. BI-RADS CATEGORY: 2 BENIGN FINDING(S) RECOMMENDED FOLLOW-UP: 12M 12 MONTH FOLLOW-UP PQRS compliance statement: Patient information was entered into a reminder system with a target due date for the next mammogram. Mammography is a sensitive method for finding small breast cancers, but it does not detect them all and is not a substitute for careful clinical examination. A negative mammogram does not negate a clinically suspicious finding and should not result in delay in biopsying a clinically suspicious abnormality. "Our facility is accredited by the [employer] Mammography Program."
== END | disposition home or self-care (01) ==
LOC: MAMMO 13:43
PROVIDERS: ATTEND Family Medicine
DX: Z12.31 Encounter for screening mammogram for malignant neoplasm of breast (principal)
CPT/HCPCS: 77063; 77067

== ENCOUNTER 2018-10-16 00:09 | Inpatient (IN) | payer MEDICARE ==
[2018-10-16] VITALS (19 sets, daily range): BP systolic 109–185; BP diastolic 53–94
[~2018-10-16] VITALS: Ht 165.1 cm; Wt 91.9 kg
[~2018-10-16 00:09] MED LIST changes: -LEVO25TA55 PO; -METO-239 PO; -METO25TA4 PO; -NITR0.4T SL; -POTA10TA12 PO; -PRAS10TA9 PO
--- NOTE | 2018-10-16 00:25 | PHYS DOC ---
Past Medical History Past Medical History: Diabetes-Type II, GERD, High Cholesterol, Hypothyroid Past Surgical History: Cholecystectomy, Hysterectomy, Other Additional Past Surgical Histo: breast reduction Alcohol Use: None Drug Use: None Adult General HPI HPI Patient is a 68 year old female was brought here by EMS due to chest pain, left shoulder pain and neck pain started about 10:30 pm today. Patient had left shoulder surgery two weeks ago. Patient has been sleeping in the recliner. Tonight was the first time she tried to sleep in her bed when she started having pain in her neck, went into her chest. Her left shoulder has been hurting since the operation. Patient vomited several times on route by EMS. She could not take the nitro or aspirin that was given by EMS. Patient denied any shortness of air. Patient has history of HTN, borderline diabetic. Review of Systems Review of Systems Constitutional: Denies fever or chills [] Eyes: Denies change in visual acuity, redness, or eye pain [] HENT: Denies nasal congestion or sore throat [] Respiratory: Denies cough or shortness of breath [] Cardiovascular: No additional information not addressed in HPI [] GI: Denies abdominal pain, POSITIVE FOR nausea AND vomiting,no bloody stools or diarrhea [] : Denies dysuria or hematuria [] Musculoskeletal: Denies back pain , positive for neck pain, left shoulder pain Integument: Denies rash or skin lesions [] Neurologic: Denies headache, focal weakness or sensory changes [] Endocrine: Denies polyuria or polydipsia [] All other systems were reviewed and found to be within normal limits, except as documented in this note. Current Medications Current Medications Current Medications Medications (Trade) Dose Ordered Sig/Blanca Start Time Stop Time Status Last Admin Dose Admin Aspirin (Caesar Aspirin) 325 mg 1X ONCE 10/16/18 00:45 10/16/18 00:46 DC 10/16/18 00:25 325 MG Fentanyl Citrate (Fentanyl 2ml Vial) 50 mcg PRN Q1HR PRN 10/16/18 00:45 10/17/18 00:44 Heparin Sodium (Porcine) (Heparin Sodium) 10,000 unit STK-MED ONCE 10/16/18 00:36 10/16/18 00:37 DC Heparin Sodium/ Dextrose 500 ml @ As Directed STK-MED ONCE 10/16/18 00:36 10/16/18 00:37 DC Heparin Sodium/ Sodium Chloride 1,000 ml @ As Directed STK-MED ONCE 10/16/18 00:48 10/16/18 00:49 DC Iodixanol (Visipaque 320) 100 ml STK-MED ONCE 10/16/18 00:48 10/16/18 00:49 DC Lidocaine HCl (Lidocaine 1% 20ml Vial) 20 ml STK-MED ONCE 10/16/18 00:48 10/16/18 00:49 DC Ondansetron HCl (Zofran) 4 mg PRN Q8HRS PRN 10/16/18 00:45 10/17/18 00:44 Sodium Chloride 1,000 ml @ 75 mls/hr [id number] 10/16/18 01:00 10/17/18 00:59 Allergies Allergies Allergies Coded Allergies Type Severity Reaction Last Updated Verified morphine Allergy Mild Nausea 11/08/16 Yes Physical Exam Physical Exam Constitutional: Well developed, well nourished, mild acute distress due to pain, non-toxic appearance. [] HENT: Normocephalic, atraumatic, bilateral external ears normal, oropharynx moist, no oral exudates, nose normal. [] Eyes: PERRLA, EOMI, conjunctiva normal, no discharge. [] Neck: Normal range of motion, no tenderness, supple, no stridor. [] Cardiovascular:Heart rate regular rhythm, no murmur [] Lungs & Thorax: Bilateral breath sounds clear to auscultation [] Abdomen: Bowel sounds normal, soft, no tenderness, no masses, no pulsatile masses. [] Skin: PALE, DIAPHORESIS. Back: No tenderness, no CVA tenderness. [] Extremities: No tenderness, no cyanosis, no clubbing, ROM intact, no edema. Left shoulder with healing wound with daniela still in place. Left shoulder is tender to palpation. Neurologic: Alert and oriented X 3, normal motor function, normal sensory function, no focal deficits noted. [] Psychologic: Affect normal, judgement normal, mood normal. [] Current Patient Data Lab Values Laboratory Tests Test 10/16/18 00:22 White Blood Count 7.8 x10^3/uL (4.0-11.0) Red Blood Count 4.44 x10^6/uL (3.50-5.40) Hemoglobin 13.1 g/dL (12.0-15.5) Hematocrit 39.3 % (36.0-47.0) Mean Corpuscular Volume 88 fL (79-100) Mean Corpuscular Hemoglobin 30 pg (25-35) Mean Corpuscular Hemoglobin Concent 33 g/dL (31-37) Red Cell Distribution Width 13.0 % (11.5-14.5) Platelet Count 445 x10^3/uL (140-400) H Neutrophils (%) (Auto) 59 % (31-73) Lymphocytes (%) (Auto) 28 % (24-48) Monocytes (%) (Auto) 9 % (0-9) Eosinophils (%) (Auto) 2 % (0-3) Basophils (%) (Auto) 1 % (0-3) Neutrophils # (Auto) 4.6 x10^3uL (1.8-7.7) Lymphocytes # (Auto) 2.2 x10^3/uL (1.0-4.8) Monocytes # (Auto) 0.7 x10^3/uL (0.0-1.1) Eosinophils # (Auto) 0.2 x10^3/uL (0.0-0.7) Basophils # (Auto) 0.1 x10^3/uL (0.0-0.2) Prothrombin Time 12.5 SEC (11.7-14.0) Prothrombin Time INR 1.0 (0.8-1.1) Sodium Level 138 mmol/L (136-145) Potassium Level 2.8 mmol/L (3.5-5.1) *L Chloride Level 98 mmol/L (98-107) Carbon Dioxide Level 30 mmol/L (21-32) Anion Gap 10 (6-14) Blood Urea Nitrogen 18 mg/dL (7-20) Creatinine 1.3 mg/dL (0.6-1.0) H Estimated GFR (Cockcroft-Gault) 40.9 BUN/Creatinine Ratio 14 (6-20) Glucose Level 223 mg/dL (70-99) H Calcium Level 9.2 mg/dL (8.5-10.1) Magnesium Level 2.0 mg/dL (1.8-2.4) Total Bilirubin 0.3 mg/dL (0.2-1.0) Aspartate Amino Transferase (AST) 39 U/L (15-37) H Alanine Aminotransferase (ALT) 39 U/L (14-59) Alkaline Phosphatase 150 U/L (46-116) H Creatine Kinase 39 U/L (26-192) Troponin I Quantitative < 0.017 ng/mL (0.000-0.055) Total Protein 7.6 g/dL (6.4-8.2) Albumin 3.3 g/dL (3.4-5.0) L Albumin/Globulin Ratio 0.8 (1.0-1.7) L Lipase 85 U/L (73-393) Laboratory Tests 10/16/18 00:22 Laboratory Tests 10/16/18 00:22 EKG EKG ekg was read by this physician at 0015, STEMI, ST SEGMENT ELEVATION IN LEAD II, III, AVF, RATE OF 56 BPM. [] Radiology/Procedures Radiology/Procedures CHEST XRAY: NO ACUTE DISEASE.[] Course & Med Decision Making Course & Med Decision Making Pertinent Labs and Imaging studies reviewed. (See chart for details) MARKETING DATABASE COORDINATOR ADMINISTRATION VICE PRESIDENT, Dr. Cash was consulted, called back at 0022, agreed to come in to take patient to cardiac lab, recommended 4000 units of heparin iv bolus. Dr. Cash at bedside at 0048. Dragon Disclaimer Dragon Disclaimer This electronic medical record was generated, in whole or in part, using a voice recognition dictation system. Departure Departure Impression: Primary Impression: STEMI (ST elevation myocardial infarction) Disposition: ADMITTED INPATIENT Admitting Physician: Feng Gregory Condition: STABLE Referrals: ZEE ACE (PCP) SRIRAM JARAMILLO DO October 16, 2018 00:25
[2018-10-16 00:33] LABS: BASO # 0.1 x10^3/uL (0.0-0.2); BASO % 1 % (0-3); EOS # 0.2 x10^3/uL (0.0-0.7); EOS % 2 % (0-3); HEMATOCRIT 39.3 % (36.0-47.0); HEMOGLOBIN 13.1 g/dL (12.0-15.5); LYMPH # 2.2 x10^3/uL (1.0-4.8); LYMPH % 28 % (24-48); MEAN CORPUSCULAR HEMOGLOBIN 30 pg (25-35); MEAN CORPUSCULAR HGB CONC 33 g/dL (31-37); MEAN CORPUSCULAR VOLUME 88 fL (79-100); MONO # 0.7 x10^3/uL (0.0-1.1); MONO % 9 % (0-9); NEUT # 4.6 x10^3uL (1.8-7.7); NEUT % 59 % (31-73); PLATELET COUNT 445 x10^3/uL (140-400); RED BLOOD COUNT 4.44 x10^6/uL (3.50-5.40); WHITE BLOOD COUNT 7.8 x10^3/uL (4.0-11.0)
[2018-10-16] MEDS ORDERED: HEPARIN 25,000UTS/500ML PREMIX 500 ML IV ONE (00:36)
[2018-10-16] MEDS ORDERED: HEPARIN for IV BOLUS 10,000 UNIT/10 ML VIAL. ONE ×2 (00:36→01:09)
[2018-10-16 00:44] LABS: PROTHROMBIN TIME PATIENT 12.5 SEC (11.7-14.0)
[2018-10-16] MEDS ORDERED: ONDANSETRON PF 4 MG/2 ML VIAL. IV PRN (00:45)
[2018-10-16] MEDS ORDERED: fentaNYL PF VIAL 100 MCG/2 ML VIAL IV PRN (00:45)
[2018-10-16] MEDS ORDERED: ASPIRIN 325 MG TABLET PO ONE (00:45)
[2018-10-16 00:48] LABS: ALBUMIN 3.3 g/dL (3.4-5.0); ALBUMIN/GLOBULIN RATIO 0.8 (1.0-1.7); CALCIUM 9.2 mg/dL (8.5-10.1); CREATININE 1.3 mg/dL (0.6-1.0); GFR 40.9; TOTAL BILIRUBIN 0.3 mg/dL (0.2-1.0); TOTAL PROTEIN 7.6 g/dL (6.4-8.2)
[2018-10-16] MEDS ORDERED: IODIXANOL 320 MG/ML 100 ML VIAL. ONE (00:48)
[2018-10-16] MEDS ORDERED: LIDOCAINE 1% Multi-Dose 20 ML VIAL. ONE (00:48)
[2018-10-16 00:50] LABS: POTASSIUM 2.8 mmol/L (3.5-5.1)
[2018-10-16 00:57] LABS: CREATINE KINASE 40 U/L (26-192)
[2018-10-16] MEDS ORDERED: ONDANSETRON PF 4 MG/2 ML VIAL. IV ONE ×4 (01:00→01:45)
[2018-10-16] MEDS: IV NORMAL SALINE 1000ML BAG 1,000 ML IV SCH ×2 (01:00→13:53)
[2018-10-16] MEDS ORDERED: fentaNYL PF VIAL 100 MCG/2 ML VIAL IV ONE (01:00)
[2018-10-16] MEDS ORDERED: IV NORMAL SALINE 500ML BAG 500 ML IV ONE (01:00)
[2018-10-16] MEDS ORDERED: HEPARIN for IV BOLUS 10,000 UNIT/10 ML VIAL. IV ONE (01:00)
--- NOTE | 2018-10-16 01:05 | RAD ---
EXAM: CHEST 1 VIEW History: Chest pain COMPARISON: None available. TECHNIQUE: Single portable radiograph of the chest FINDINGS: The cardiac silhouette is unremarkable. The lungs are clear bilaterally. The costophrenic sulci are clear and well demarcated. IMPRESSION: No radiographic evidence of an acute cardiopulmonary process. Electronically signed by: Gael Oliveros MD (10/16/2018 1:01 AM) [facility]
[2018-10-16] MEDS ORDERED: VERAPAMIL 5 MG/2 ML VIAL. ONE (01:09)
[2018-10-16] MEDS ORDERED: NITROGLYCERIN 200 MCG/2 ML SYRINGE FOR CATH/VASC LAB. ONE (01:09)
[2018-10-16] MEDS ORDERED: ATROPINE 1 MG/10 ML DISP.SYRINGE. ONE (01:11)
[2018-10-16] MEDS ORDERED: ONDANSETRON PF 4 MG/2 ML VIAL. ONE (01:11)
[2018-10-16] MEDS ORDERED: TIROFIBAN 5MG -0.9% NS 100 ML IV ONE ×2 (01:13→01:41)
[2018-10-16] MEDS ORDERED: PHENYLEPHRINE in 0.9% NACL PF 1 MG/10 ML SYRINGE. IV ONE (01:20)
[2018-10-16] MEDS ORDERED: PHENYLEPHRINE 10 MG/ML VIAL. ONE (01:20)
[2018-10-16] MEDS ORDERED: NITROGLYCERIN 200 MCG/2 ML SYRINGE FOR CATH/VASC LAB. IART ONE (01:30)
[2018-10-16] MEDS ORDERED: POTASSIUM CHLORIDE 40 MEQ in IV DEXTROSE 5% 1,000 ML IV ONE (01:30)
[2018-10-16] MEDS ORDERED: IODIXANOL 320 MG/ML 100 ML VIAL. IART ONE (01:30)
[2018-10-16] MEDS ORDERED: LIDOCAINE 1% Multi-Dose 20 ML VIAL. INJ ONE (01:30)
[2018-10-16] MEDS ORDERED: VERAPAMIL 5 MG/2 ML VIAL. IART ONE (01:30)
[2018-10-16] MEDS ORDERED: TIROFIBAN 5MG -0.9% NS 100 ML IV PRN ×2 (01:30→02:00)
[2018-10-16] MEDS ORDERED: HEPARIN for IV BOLUS 10,000 UNIT/10 ML VIAL. IART ONE (01:30)
[2018-10-16] MEDS ORDERED: AMIODARONE 150 MG in IV DEXTROSE 5% 100ML 100 ML IV PRN (02:00)
[2018-10-16] MEDS ORDERED: LIDOCAINE 2% 100 MG/5 ML SYRINGE. IV PRN (02:00)
[2018-10-16] MEDS ORDERED: NITROGLYCERIN SUBLINGUAL 0.4 MG BOTTLE OF 25. SL PRN (02:00)
[2018-10-16] MEDS ORDERED: ATROPINE 0.5 MG/5 ML DISP.SYRINGE. IV PRN (02:00)
[2018-10-16] MEDS ORDERED: 0.9 % SODIUM CHLORIDE 10 ML DISP.SYRIN. IV PRN (02:00)
--- NOTE | 2018-10-16 02:09 | CARD ---
MR#: [id number] Date of Study: 10/16/2018 Ordering Physician: JATIN CASH, Referring Physician: SRIRAM JARAMILLO, Tech: Ledy Smith RT (R) APPROVED REPORT Technologist: Ledy Smith RT (R) Procedure(s) performed: NO SEDATION 3.5 FLUORO TIME DAP 82 Gycm2 77 visipaque HISTORY The patient is a 68 year-old female with a history of : diabetes mellitus with diet treatment, hypert ension. INDICATION The indication(s) include : STEMI . PROCEDURE NARRATIVE INFORMED CONSENT: After explaining the risks and benefits of the procedure and alternatives, verbal e mergency informed consent was obtained. The patient was brought emergently to the cardiac catheterization lab. A timeout was performed confi rming the patient's name, date of , procedure, and site of procedure. All necessary personnel w ere wearing the appropriate protective equipment and radiation monitor devices. (See nursing notes for medications administered). ACCESS: The right wrist was sterilely prepped and draped in the usual fashion. The right wrist was infiltrat ed with 1 mL of 2% lidocaine for subcutaneous anesthesia. A 6 Danish Terumo glide sheath was inserte d into the right radial artery without difficulty. CORONARY ANGIOGRAPHY: Right and left coronary angiography was performed using a 6Fr TIG 4.0 catheter. All catheter exchang es and advancements were performed over a guidewire. FINDINGS: HEMODYNAMICS: AO: 160/80 CORONARY ANGIOGRAPHY: LM is a large caliber vessel with normal angiographic appearance. LAD is a large caliber vessel with a mid 80% stenosis and a distal 70% stenosis. D1 is a moderate caliber vessel with an ostial/proximal 40% stenosis. LCx is a moderate caliber non-dominant vessel with normal angiographic appearance. OM1 is a moderate caliber vessel with a mid 60% stenosis. RCA is a large caliber dominant vessel with mid 100% occlusion. RPDA and RPL are moderate caliber vessels with normal angiographic appearance. INTERVENTIONAL TECHNIQUE: PCI OF THE RCA Heparin and tirofiban were used for an to regulation. Through a 6 Danish JR4 guide catheter a 0.014 i nch pro-water wire was advanced to the distal RCA. Balloon angioplasty was performed with a 3.0 x 15 mm balloon and the lesion was stented with a 4.0 x 38 mm resolute drug-eluting stent. There was excel lent stent expansion with SHERRY-3 flow in the vessel and no evidence of guider wire-related complicati ons. Patient has had significant nausea throughout the case and due to stability of the left-sided le sions intervention was deferred for a staged PCI in the near future. Due to the patient's nausea and vomiting and intravenous drip of tirofiban was continued. When the patient is able to tolerate oral t herapy, prasugrel will be given. CLOSURE: At case completion the right radial sheath was removed and a Terumo radial band was applied with 13 m l of air. COMPLICATIONS: The patient tolerated the procedure well and there were no immediate complications. SHERRY Flow SHERRY Flow (Pre-Intervention): SHERRY-0 SHERRY Flow (Post-Intervention): SHERRY-3 Conclusion 1. Three vessel coronary artery disease. 2. Inferolateral STEMI due to RCA occlusion, successfully treated with a Resolute 4.0/38 MARY. Recommendations ASA 81mg daily Prasugrel 10mg daily (after 60mg load when able to tolerate oral therapy) High dose statin therapy Cardiac rehab upon discharge Plan for staged PCI of the LAD +/- LCx in 48 hours. Signed by : Jatin Cash, Electronically Approved : 10/16/2018 02:08:57
--- NOTE | 2018-10-16 02:23 | PDOC ---
Provider Note Provider Note full note dictated. inferior stemi with 3V CAD s/p PCI. see cath report planned for staged PCI on thursday. Discussed with nursing. asa, effient, statin continue tirofiban till a.m. thanks JATIN JEFF MD October 16, 2018 02:23
[2018-10-16] MEDS: fentaNYL PF VIAL 100 MCG/2 ML VIAL IV PRN ×2 (02:39→04:37)
[2018-10-16] MEDS ORDERED: PRASUGREL 10 MG TABLET. PO ONE ×2 (02:45→10:30)
--- NOTE | 2018-10-16 03:52 | CONS ---
DATE OF CONSULTATION: 10/16/2018 REASON FOR CONSULTATION: Acute inferior ST elevation myocardial infarction. HISTORY OF PRESENT ILLNESS: The patient is a pleasant 68-year-old woman with past medical history as noted below, presented to the hospital with acute onset of chest pain approximately one hour prior to presentation. She called EMS and arrived in our ER and initial EKG demonstrated inferior ST elevation with reciprocal posterolateral changes. The STEMI team was activated. She was brought urgently to catheterization laboratory. In speaking with the patient, she denies any baseline symptoms. She does have a history of iron deficiency anemia and has in the past received iron transfusions. She is taken care of by Dr. Bosch through the Hematology/Oncology Department. She recently underwent shoulder surgery at [facility] and she has been recuperating well from that, but otherwise denies any exertional dyspnea, orthopnea, PND or lower extremity edema. No syncope or palpitations. PAST MEDICAL HISTORY: 1. Hypertension. 2. Borderline diabetes. 3. Osteoarthritis, status post recent surgery of the left shoulder as noted above. SOCIAL HISTORY: The patient denies any alcohol, tobacco or illicit drug use. She is . ALLERGIES: MORPHINE, WHICH CAUSES NAUSEA. REVIEW OF SYSTEMS: Negative for 10 of 14 systems reviewed, unless otherwise mentioned above in HPI. FAMILY HISTORY: Noncontributory. PHYSICAL EXAMINATION: VITAL SIGNS: Afebrile, heart rate 82, blood pressure 146/79, pulse ox 96% on 2 liters nasal cannula and respiratory rate 17. GENERAL: She was alert and oriented, in mild distress from her pain. HEAD AND NECK: Unremarkable. CARDIAC: Regular rate and rhythm without murmurs, rubs or gallops. LUNGS: Clear to auscultation anteriorly. ABDOMEN: Soft, nontender, nondistended, obese. NEUROLOGIC: No focal deficits. MUSCULOSKELETAL: No trauma. EXTREMITIES: 2+ radial and 1+ dorsalis pedis pulses. Extremities cool to touch. DIAGNOSTIC STUDIES: Initial hemoglobin was 13.1 with a platelet count of 445. Potassium 2.8 with an initial troponin that was negative. Creatinine 1.3. ALT, AST are within normal limits. Chest x-ray does not demonstrate any significant abnormalities. EKG demonstrates inferior [address] elevations with posterior reciprocal changes. IMPRESSION: 1. Inferior ST elevation myocardial infarction. 2. Hypertension. RECOMMENDATIONS: I discussed with the patient and her family about the risks, benefits, and alternatives to emergent cardiac catheterization and she wishes to proceed. Final recommendations forthcoming after cardiac catheterization. Thank you for this consultation. JATIN JEFF MD DR: YUNIOR/nts JOB#: [id number] / [id number]
[2018-10-16] MEDS: POTASSIUM CL 40MEQ IN 0.9%NACL 1,000 ML IV ONE (05:00)
--- NOTE | 2018-10-16 05:25 | EKG ---
[facility] [address] [place] [address] Test Date: 2018-10-16 Test Time: 05:14:10 Pat Name: JAM WEI Department: Room: 105 1 Gender: F Outreach Associate: RUFINO : 1950 Requested By: SRIRAM JARAMILLO Order Number: [id number] Reading MD: Lopez Cash MD Measurements Intervals [place] Rate: 76 P: 62 DC: 208 QRS: 31 QRSD: 60 T: 48 QT: 396 QTc: 450 Interpretive Statements SINUS RHYTHM CONSIDER RECENT INFERIOR INFARCT Electronically Signed On 11-11-2018 14:44:29 CDT by Lopez Cash MD
[2018-10-16] MEDS ORDERED: ATORVASTATIN CALCIUM 40 MG TABLET. PO ONE (10:30)
--- NOTE | 2018-10-16 11:16 | PDOC ---
Provider Note Provider Note Pt seen in ICU. #[id number]. RHIANNA SEVERINO MD October 16, 2018 11:16
[2018-10-16 11:48] LABS: CALCIUM 8.6 mg/dL (8.5-10.1); CREATININE 1.2 mg/dL (0.6-1.0); GFR 44.8; POTASSIUM 3.9 mmol/L (3.5-5.1)
--- NOTE | 2018-10-16 12:06 | HP ---
ADMIT DATE: 10/16/2018 MEDICAL HISTORY AND PHYSICAL REASON FOR ADMISSION TO THE HOSPITAL: STEMI and chest pain, inferior wall CA. HISTORY OF PRESENT ILLNESS: The patient is a 68-year-old female, patient of Dr. Velasco. The patient recently had a left shoulder surgery at [facility] 2 weeks ago and then yesterday, when she was sleeping, she had some discomfort, pressure in the chest last night and was brought to the hospital by paramedics. EKG shows inferior wall ST elevation. Troponin was negative at that time. The patient was taken to cardiac catheterization, has a 3-vessel disease, has right coronary total occlusion and stent was placed last night. The patient was admitted to the ICU. The patient is supposed to have staged angioplasty procedures for the other two arteries. PAST MEDICAL HISTORY: She has a history of diabetes, hypertension, hyperlipidemia and hypothyroidism. She also gives history of anemia, had transfusion, iron infusions last year by Dr. Bosch. PAST SURGICAL HISTORY: Gallbladder surgery, hysterectomy, shoulder surgery recently and breast reduction. ALLERGIES: ALLERGY TO MORPHINE, CAUSES NAUSEA AND VOMITING. MEDICATIONS AT HOME: The patient is on Dyazide 1 daily and B12. FAMILY HISTORY: Positive for diabetes and heart disease. REVIEW OF SYSTEMS: Cardiac pineda, no chest pain now. No shortness of breath. No nausea or vomiting. Rest of the 14 systems was reviewed and negative. PERSONAL HISTORY: Denies smoking, alcohol or drug abuse. PHYSICAL EXAMINATION: GENERAL: On examination, the patient is seen in the ICU, comfortable. VITAL SIGNS: Temperature 98, pulse 75, respirations 20, blood pressure 130/60 and 96 on room air. HEENT: Head is atraumatic. Pupils equal. Oral cavity, no congestion. NECK: Supple. Thyroid not enlarged. JVD not elevated. CHEST: Symmetrical. CARDIOVASCULAR: S1 and S2. LUNGS: Clear to auscultation. ABDOMEN: Soft. No masses palpable. EXTERNAL GENITALIA: No Avila. RECTAL: Deferred. EXTREMITIES: No calf tenderness, no edema. The patient has a recent scar of her left shoulder surgery she had 2 weeks ago. LABORATORY DATA: Shows a white count of 8, hemoglobin 13 and platelets 445,000. INR is 1.0. Electrolytes show sodium 138, potassium 2.8, chloride 98, bicarb 30, BUN 18, creatinine 1.3 and glucose 222. Troponin 0.017. Chest x-ray negative. EKG shows inferior wall ST elevation, II, III and aVF. FINAL IMPRESSION: 1. Acute inferior wall myocardial infarction, ST-elevation myocardial infarction. 2. Hypertension. 3. History of anemia. PLAN: This patient was taken to cardiac catheterization last night and the patient had a 3-vessel disease, had inferolateral myocardial infarction secondary to right coronary artery occlusion and had a stent placed, drug-eluting stent and she had planned procedure for LAD and circumflex in the next 48 hours. The patient is on aspirin, cholesterol medication and beta samuel at the present time. RHIANNA SEVERINO MD DR: ARPIT/rebel JOB#: [id number] / [id number] ZEE Porras
--- NOTE | 2018-10-16 13:43 | NUR ---
Pt transferred up to CVC, room 208. Report called to PATIENCE Woodall. Pt alert and oriented at time of transfer. VSS, site to right radial with dressing CDI, pulses present. Pt denies pain. All belongings sent with pt. Pt family present at time of transfer. No further needs at this time.
[2018-10-16] MEDS: ACETAMINOPHEN 325 MG TABLET. PO PRN ×2 (13:50→21:14)
[2018-10-16] MEDS: ATORVASTATIN CALCIUM 20 MG TABLET PO SCH (21:13)
[2018-10-17] MEDS: fentaNYL PF VIAL 100 MCG/2 ML VIAL IV PRN ×2 (02:49→20:59)
[2018-10-17 03:30] VITALS: BP 161/69
[2018-10-17 04:35] LABS: ALBUMIN 2.8 g/dL (3.4-5.0); CALCIUM 8.6 mg/dL (8.5-10.1); DIRECT BILIRUBIN 0.3 mg/dL (0.0-0.2); GFR 55.3; POTASSIUM 3.4 mmol/L (3.5-5.1); TOTAL BILIRUBIN 0.5 mg/dL (0.2-1.0); TOTAL PROTEIN 6.3 g/dL (6.4-8.2)
[2018-10-17 04:40] LABS: CHOLESTEROL/HDL RATIO 5.9
[2018-10-17 07:00] VITALS: BP 128/73
[2018-10-17] MEDS: ASPIRIN ENTERIC COATED 81 MG TABLET.DR. PO SCH (08:12)
[2018-10-17] MEDS: PRASUGREL 10 MG TABLET. PO SCH (08:12)
--- NOTE | 2018-10-17 10:27 | CARD ---
MR#: [id number] Date of Study: 10/16/2018 Ordering Physician: JATIN JEFF, Referring Physician: RHIANNA SEVERINO Tech: Hina Sánchez JEREMY APPROVED REPORT EXAM: Two-dimensional and M-mode echocardiogram with Doppler and color Doppler. Other Information Quality : Good Technically limited study due to body habitus. INDICATION STEMI 2D DIMENSIONS RVDd3.0 (2.9-3.5cm)Left Atrium(2D)3.2 (1.6-4.0cm) IVSd1.0 (0.7-1.1cm)Aortic Root(2D)3.4 (2.0-3.7cm) LVDd4.9 (3.9-5.9cm)LVOT Diameter2.3 (1.8-2.4cm) PWd1.0 (0.7-1.1cm)LVDs3.9 (2.5-4.0cm) FS (%) 30.0 %SV44.8 ml LVEF(%)60.0 (>50%) Aortic Valve AoV Peak Santiago.173.3cm/sAoV VTI26.3cm AO Peak GR.12.0mmHgLVOT VTI 19.71cm AO Mean GR.6mmHgAVA (VTI)3.10cm2 AI P 1/2 Qepd548dr Mitral Valve MV E Sotmrdkn44.7cm/sMV DECEL LTCN575hx MV A Jazdpnyw39.4cm/sE/A Ratio0.8 TDI Lateral E' P. V9.46cm/sMedial E' P. V7.27cm/s E/Lateral E'8.6E/Medial E'11.2 Tricuspid Valve TR P. Rihbqstu168yz/sRAP ISFPERRS6lhCb TR Peak Gr.38ggQdSOTT21xwRj Pulmonary Vein S1 Smrgmsfl89.9cm/sS2 Banmexxn98.85cm/s D2 Spkemwkm13.8cm/s LEFT VENTRICLE The left ventricle is normal size. There is normal left ventricular wall thickness. The left ventricu lar systolic function is normal and the ejection fraction is within normal range. The Ejection Fracti on is 55-60%. There is normal LV segmental wall motion. Transmitral Doppler flow pattern is Grade I-a bnormal relaxation pattern. RIGHT VENTRICLE The right ventricle is normal size. The right ventricular systolic function is normal. ATRIA The left atrium size is normal. The right atrium size is normal. The interatrial septum is intact wit h no evidence for an atrial septal defect or patent foramen ovale as noted on 2-D or Doppler imaging. AORTIC VALVE The aortic valve is calcified but opens well. Doppler and Color Flow revealed mild aortic regurgitati on. There is no significant aortic valvular stenosis. MITRAL VALVE The mitral valve is calcified but opens well. There is no evidence of mitral valve prolapse. There is no mitral valve stenosis. Doppler and Color Flow revealed no mitral valve regurgitation noted. TRICUSPID VALVE The tricuspid valve is normal in structure and function. Doppler and Color Flow revealed no tricuspid valve regurgitation noted. There is no tricuspid valve stenosis. PULMONIC VALVE The pulmonic valve is not well visualized. Doppler and Color Flow revealed no pulmonic valvular regur gitation. There is no pulmonic valvular stenosis. GREAT VESSELS The aortic root is normal in size. The ascending aorta is moderately dilated at 3.9 cm. The IVC is no rmal in size and collapses >50% with inspiration. PERICARDIAL EFFUSION There is no evidence of significant pericardial effusion. Critical Notification Critical Value: No <Conclusion> The left ventricular systolic function is normal and the ejection fraction is within normal range. Th e Ejection Fraction is 55-60%. There is normal LV segmental wall motion. The ascending aorta is moderately dilated at 3.9 cm. Signed by : Jatin Jeff, Electronically Approved : 10/17/2018 10:27:19
--- NOTE | 2018-10-17 10:50 | PDOC ---
PROGRESS NOTES Subjective Subjective no cp ,feels better today Objective Objective Vital Signs Date Time Temp Pulse Resp B/P (MAP) Pulse Ox O2 Delivery O2 Flow Rate FiO2 10/17/18 07:50 Room Air 10/17/18 07:00 98.0 89 20 128/73 (91) 93 98.0 10/16/18 07:30 2.0 Intake and Output 10/17/18 07:00 Intake Total 590 ml Output Total 100 ml Balance 490 ml Intake Oral 590 ml Output Urine Total 100 ml # Voids 7 Physical Exam Abdomen: Normal bowel sounds, Soft Heart: Regular rate, Normal S1 Extremities: No clubbing General: Alert HEENT: Atraumatic Lungs: Clear to auscultation MUSCULOSKELETAL: No deformity Neck: Supple Neuro: Normal speech Psych/Mental Status: Mental status NL Skin: No breakdown Diagnosis Problem List Problems Medical Problems: (1) STEMI (ST elevation myocardial infarction) Status: Acute Assessment Assessment Problems Medical Problems: (1) STEMI (ST elevation myocardial infarction) Status: Acute FINAL IMPRESSION: 1. Acute inferior wall myocardial infarction, ST-elevation myocardial infarction. 2. Hypertension. 3. History of anemia. 4 CAD, 3 vessel disease PLAN: This patient was taken to cardiac catheterization last night and the patient had a 3-vessel disease, had inferolateral myocardial infarction secondary to right coronary artery occlusion and had a stent placed, drug-eluting stent and she had planned procedure for LAD and circumflex in the next 48 hours. The patient is on aspirin, cholesterol medication and beta samuel at the present time. Plan Plan of Care Problems Medical Problems: (1) STEMI (ST elevation myocardial infarction) Status: Acute Comment Review of Relevant I have reviewed the following items les (where applicable) has been applied. Labs Laboratory Tests Test 10/16/18 10:55 10/17/18 03:30 Sodium Level 137 mmol/L (136-145) 140 mmol/L (136-145) Potassium Level 3.9 mmol/L (3.5-5.1) 3.4 mmol/L (3.5-5.1) Chloride Level 99 mmol/L (98-107) 103 mmol/L (98-107) Carbon Dioxide Level 29 mmol/L (21-32) 29 mmol/L (21-32) Anion Gap 9 (6-14) 8 (6-14) Blood Urea Nitrogen 18 mg/dL (7-20) 13 mg/dL (7-20) Creatinine 1.2 mg/dL (0.6-1.0) 1.0 mg/dL (0.6-1.0) Estimated GFR (Cockcroft-Gault) 44.8 55.3 Glucose Level 210 mg/dL (70-99) 178 mg/dL (70-99) Calcium Level 8.6 mg/dL (8.5-10.1) 8.6 mg/dL (8.5-10.1) Troponin I Quantitative 9.750 ng/mL (0.000-0.055) Total Bilirubin 0.5 mg/dL (0.2-1.0) Direct Bilirubin 0.3 mg/dL (0.0-0.2) Aspartate Amino Transf (AST/SGOT) 75 U/L (15-37) Alanine Aminotransferase (ALT/SGPT) 32 U/L (14-59) Alkaline Phosphatase 123 U/L (46-116) Total Protein 6.3 g/dL (6.4-8.2) Albumin 2.8 g/dL (3.4-5.0) Triglycerides Level 196 mg/dL (0-150) Cholesterol Level 166 mg/dL (0-200) LDL Cholesterol, Calculated 99 mg/dL (0-100) VLDL Cholesterol, Calculated 39 mg/dL (0-40) Non-HDL Cholesterol Calculated 138 mg/dL (0-129) HDL Cholesterol 28 mg/dL (40-60) Cholesterol/HDL Ratio 5.9 Thyroid Stimulating Hormone (TSH) 5.472 uIU/mL (0.358-3.74) Medications Current Medications Aspirin (Ecotrin) 81 mg DAILYWBKFT PO Last administered on 10/17/18at 08:12; Start 10/17/18 at 08:00 Atorvastatin Calcium (Lipitor) 40 mg QHS PO Last administered on 10/16/18at 21:13; Start 10/16/18 at 21:00 Prasugrel (Effient) 10 mg DAILYWBKFT PO Last administered on 10/17/18at 08:12; Start 10/17/18 at 08:00 Vitals/I & O Vital Sign - Last 24 Hours 10/16/18 10/16/18 10/16/18 10/16/18 11:04 12:24 13:25 15:00 Temp 98.4 98.4 97.6 98.4 98.4 97.6 Pulse 75 78 76 Resp 20 20 18 B/P (MAP) 120/61 (80) 140/68 (92) 129/60 (83) Pulse Ox 96 95 94 O2 Delivery Room Air Room Air Room Air Room Air 10/16/18 10/16/18 10/16/18 10/17/18 19:45 20:10 22:45 02:49 Temp 97.9 98.8 97.9 98.8 Pulse 79 88 Resp 20 20 20 B/P (MAP) 119/65 (83) 134/53 (80) Pulse Ox 96 96 96 O2 Delivery Room Air Room Air Room Air Room Air 10/17/18 10/17/18 10/17/18 10/17/18 03:19 03:30 07:00 07:50 Temp 97.6 98.0 97.6 98.0 Pulse 83 89 Resp 20 20 20 B/P (MAP) 161/69 (99) 128/73 (91) Pulse Ox 95 95 93 O2 Delivery Room Air Room Air Room Air Room Air Intake and Output 10/16/18 10/16/18 10/17/18 15:00 23:00 07:00 Intake Total 240 ml 350 ml Output Total 100 ml Balance 240 ml 250 ml RHIANNA SEVERINO MD October 17, 2018 10:50
[2018-10-17 11:00] VITALS: BP 146/76
[2018-10-17] MEDS ORDERED: POTASSIUM CHLORIDE 20 MEQ TABLET.ER. PO ONE (11:00)
[2018-10-17] MEDS: LEVOTHYROXINE 25 MCG TABLET. PO SCH (11:07)
[2018-10-17] MEDS: METOPROLOL TART IMMED RELEASE 25 MG TABLET. PO SCH ×2 (11:08→20:54)
[2018-10-17 15:00] VITALS: BP 126/64
--- NOTE | 2018-10-17 15:48 | EKG ---
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
--- NOTE | 2018-10-17 16:42 | PDOC ---
CARDIOLOGY PROGRESS NOTE SUBJECTIVE: No new events overnight. Denies any chest pain or nausea this morning. OBJECTIVE: Vital SIgns: Vital Signs Date Time Temp Pulse Resp B/P (MAP) Pulse Ox O2 Delivery O2 Flow Rate FiO2 10/17/18 15:00 98.3 76 20 126/64 (84) 90 Room Air 98.3 10/16/18 07:30 2.0 I & O Intake and Output 10/17/18 07:00 Intake Total 590 ml Output Total 100 ml Balance 490 ml Intake Oral 590 ml Output Urine Total 100 ml # Voids 7 Objective: The patient appeared well nourished and normally developed. Head exam is unremarkable. No scleral icterus or corneal arcus noted. Neck is without jugular venous distension, thyromegaly, or carotid bruits. Carotid upstrokes are brisk bilaterally. Lungs are clear to auscultation and percussion. Cardiac exam reveals the PMI to be normally sized and situated. Rhythm is regular. First and second heart sounds normal. No murmurs, rubs or gallops. Abdominal exam reveals normal bowel sounds, no masses, no organomegaly and no aortic enlargement. Extremities are nonedematous and both femoral and pedal pulses are normal. Msk: No traumua Neuro: No focal deficits CURRENT MEDICATIONS: Aspirin, Effient, atorvastatin, metoprolol DIAGNOSTIC TESTING: Echocardiogram demonstrates normal LV function with minimal basal to mid inferior wall hypokinesis. ASSESSMENT: 1. Inferior ST elevation myocardial infarction 2. Three-vessel coronary artery disease 3. Dyslipidemia 4. Hypertension PLAN: 1. Plan for staged PCI of the LAD and possibly the circumflex tomorrow depending on binges on repeat cardiac catheterization. 2. Continue current medical therapy. Discussed with the patient and no other acute issues. JATIN JEFF MD October 17, 2018 16:42
[2018-10-17 19:00] VITALS: BP 142/81
[2018-10-17] MEDS: ATORVASTATIN CALCIUM 20 MG TABLET PO SCH (20:52)
[2018-10-17 23:00] VITALS: BP 123/63
[2018-10-18] VITALS (16 sets, daily range): BP systolic 100–145; BP diastolic 50–68
[2018-10-18 01:31] LABS: BILIRUBIN,URINE NEGATIVE (NEG); CLARITY,URINE CLEAR; COLOR,URINE YELLOW; NITRITE,URINE NEGATIVE (NEG); PH,URINE 5.5; PROTEIN,URINE NEGATIVE (NEG-TRACE)
[2018-10-18 02:27] LABS: BACTERIA,URINE FEW /HPF (0-FEW); RBC,URINE OCC /HPF (0-2); SQUAMOUS EPITHELIAL CELL,UR MOD /LPF; WBC,URINE OCC /HPF (0-4)
[2018-10-18 05:00] LABS: BASO % 0 % (0-3); EOS # 0.3 x10^3/uL (0.0-0.7); EOS % 4 % (0-3); HEMATOCRIT 33.8 % (36.0-47.0); HEMOGLOBIN 10.9 g/dL (12.0-15.5); LYMPH # 1.5 x10^3/uL (1.0-4.8); LYMPH % 17 % (24-48); MEAN CORPUSCULAR HEMOGLOBIN 29 pg (25-35); MEAN CORPUSCULAR HGB CONC 32 g/dL (31-37); MEAN CORPUSCULAR VOLUME 89 fL (79-100); MONO # 0.6 x10^3/uL (0.0-1.1); MONO % 7 % (0-9); NEUT # 6.3 x10^3uL (1.8-7.7); NEUT % 72 % (31-73); PLATELET COUNT 328 x10^3/uL (140-400); RED BLOOD COUNT 3.78 x10^6/uL (3.50-5.40); RED CELL DISTRIBUTION WIDTH 13.5 % (11.5-14.5); WHITE BLOOD COUNT 8.7 x10^3/uL (4.0-11.0)
[2018-10-18 05:30] LABS: CALCIUM 8.9 mg/dL (8.5-10.1); GFR 55.3; POTASSIUM 3.9 mmol/L (3.5-5.1)
--- NOTE | 2018-10-18 06:39 | EKG ---
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
[2018-10-18] MEDS: METOPROLOL TART IMMED RELEASE 25 MG TABLET. PO SCH ×2 (08:58→22:37)
[2018-10-18] MEDS: ASPIRIN ENTERIC COATED 81 MG TABLET.DR. PO SCH (08:58)
[2018-10-18] MEDS: LEVOTHYROXINE 25 MCG TABLET. PO SCH (08:58)
[2018-10-18] MEDS: PRASUGREL 10 MG TABLET. PO SCH (08:58)
--- NOTE | 2018-10-18 10:03 | PDOC ---
PROGRESS NOTES Subjective Subjective waiting to go to collaborating supervising physician Objective Objective Vital Signs Date Time Temp Pulse Resp B/P (MAP) Pulse Ox O2 Delivery O2 Flow Rate FiO2 10/18/18 08:58 73 132/54 10/18/18 07:00 98.2 16 Room Air 93.0 98.2 10/18/18 03:00 96 Intake and Output 10/18/18 07:00 Intake Total 800 ml Output Total 150 ml Balance 650 ml Intake Oral 800 ml Output Urine Total 150 ml # Voids 3 Physical Exam Abdomen: Normal bowel sounds, Soft Heart: Regular rate, Normal S1 Extremities: No clubbing General: Alert HEENT: Atraumatic Lungs: Clear to auscultation MUSCULOSKELETAL: No deformity Neck: Supple Neuro: Normal speech Psych/Mental Status: Mental status NL Skin: No breakdown Diagnosis Problem List Problems Medical Problems: (1) STEMI (ST elevation myocardial infarction) Status: Acute Assessment Assessment Problems Medical Problems: (1) STEMI (ST elevation myocardial infarction) Status: Acute FINAL IMPRESSION: 1. Acute inferior wall myocardial infarction, ST-elevation myocardial infarction. 2. Hypertension. 3. History of anemia. 4 CAD, 3 vessel disease PLAN: Emergent cardiac cath and placement of MARY to RCA.2 days ago planned staged procedure to LAD today. labs stable .on meds today. This patient was taken to cardiac catheterization last night and the patient had a 3-vessel disease, had inferolateral myocardial infarction secondary to right coronary artery occlusion and had a stent placed, drug-eluting stent and she had planned procedure for LAD and circumflex in the next 48 hours. The patient is on aspirin, cholesterol medication and beta samuel at the present time. Plan Plan of Care Problems Medical Problems: (1) STEMI (ST elevation myocardial infarction) Status: Acute Comment Review of Relevant I have reviewed the following items les (where applicable) has been applied. Labs Laboratory Tests Test 10/17/18 20:50 10/18/18 04:05 Glucose (Fingerstick) 174 mg/dL (70-99) White Blood Count 8.7 x10^3/uL (4.0-11.0) Red Blood Count 3.78 x10^6/uL (3.50-5.40) Hemoglobin 10.9 g/dL (12.0-15.5) Hematocrit 33.8 % (36.0-47.0) Mean Corpuscular Volume 89 fL (79-100) Mean Corpuscular Hemoglobin 29 pg (25-35) Mean Corpuscular Hemoglobin Concent 32 g/dL (31-37) Red Cell Distribution Width 13.5 % (11.5-14.5) Platelet Count 328 x10^3/uL (140-400) Neutrophils (%) (Auto) 72 % (31-73) Lymphocytes (%) (Auto) 17 % (24-48) Monocytes (%) (Auto) 7 % (0-9) Eosinophils (%) (Auto) 4 % (0-3) Basophils (%) (Auto) 0 % (0-3) Neutrophils # (Auto) 6.3 x10^3uL (1.8-7.7) Lymphocytes # (Auto) 1.5 x10^3/uL (1.0-4.8) Monocytes # (Auto) 0.6 x10^3/uL (0.0-1.1) Eosinophils # (Auto) 0.3 x10^3/uL (0.0-0.7) Basophils # (Auto) 0.0 x10^3/uL (0.0-0.2) Sodium Level 141 mmol/L (136-145) Potassium Level 3.9 mmol/L (3.5-5.1) Chloride Level 104 mmol/L (98-107) Carbon Dioxide Level 27 mmol/L (21-32) Anion Gap 10 (6-14) Blood Urea Nitrogen 15 mg/dL (7-20) Creatinine 1.0 mg/dL (0.6-1.0) Estimated GFR (Cockcroft-Gault) 55.3 Glucose Level 159 mg/dL (70-99) Calcium Level 8.9 mg/dL (8.5-10.1) Medications Current Medications Levothyroxine Sodium (Synthroid) 25 mcg DAILY06 PO Last administered on 10/18/18at 08:58; Start 10/17/18 at 11:30 Metoprolol Tartrate (Lopressor) 12.5 mg BID PO Last administered on 10/18/18at 08:58; Start 10/17/18 at 11:00 Potassium Chloride (Klor-Con) 40 meq 1X ONCE PO Last administered on 10/17/18at 11:08; Start 10/17/18 at 11:00; Stop 10/17/18 at 11:01; Status DC Vitals/I & O Vital Sign - Last 24 Hours 10/17/18 10/17/18 10/17/18 10/17/18 11:00 11:08 15:00 19:00 Temp 98.1 98.3 98.5 98.1 98.3 98.5 Pulse 89 88 76 79 Resp 20 20 18 B/P (MAP) 146/76 (99) 146/76 126/64 (84) 142/81 (101) Pulse Ox 90 90 95 O2 Delivery Room Air Room Air Room Air 10/17/18 10/17/18 10/17/18 10/17/18 20:00 20:54 20:59 21:30 Pulse 79 Resp 20 20 B/P (MAP) 142/81 Pulse Ox 95 96 O2 Delivery Room Air Room Air Room Air 10/17/18 10/18/18 10/18/18 10/18/18 23:00 03:00 07:00 08:58 Temp 98.5 99.2 98.2 98.5 99.2 98.2 Pulse 69 75 73 73 Resp 18 18 16 B/P (MAP) 123/63 (83) 121/65 (83) 132/54 (80) 132/54 Pulse Ox 91 96 O2 Delivery Room Air Room Air Room Air O2 Flow Rate 93.0 Intake and Output 10/17/18 10/17/18 10/18/18 15:00 23:00 07:00 Intake Total 180 ml 420 ml 200 ml Output Total 150 ml Balance 180 ml 420 ml 50 ml RHIANNA SEVERINO MD October 18, 2018 10:03
--- NOTE | 2018-10-18 12:29 | NUR ---
SS following for discharge planning. SS reviewed pt chart. Pt is from home and is currently on room air. No discharge needs noted at this time. SS will continue to follow for discharge planning.
[2018-10-18] MEDS ORDERED: IODIXANOL 320 MG/ML 100 ML VIAL. ONE (13:01)
[2018-10-18] MEDS ORDERED: LIDOCAINE 1% PF 2 ML VIAL. ONE ×2 (13:01→13:09)
[2018-10-18] MEDS ORDERED: fentaNYL PF VIAL 100 MCG/2 ML VIAL ONE (13:40)
[2018-10-18] MEDS ORDERED: NITROGLYCERIN 200 MCG/2 ML SYRINGE FOR CATH/VASC LAB. ONE (13:41)
[2018-10-18] MEDS ORDERED: VERAPAMIL 5 MG/2 ML VIAL. ONE (13:41)
[2018-10-18] MEDS ORDERED: HEPARIN for IV BOLUS 10,000 UNIT/10 ML VIAL. ONE (13:41)
[2018-10-18] MEDS ORDERED: MIDAZOLAM HCL/PF 2 MG/2 ML VIAL. ONE (13:41)
[2018-10-18] MEDS ORDERED: fentaNYL PF VIAL 100 MCG/2 ML VIAL IV ONE (14:15)
[2018-10-18] MEDS ORDERED: VERAPAMIL 5 MG/2 ML VIAL. IART ONE (14:15)
[2018-10-18] MEDS ORDERED: MIDAZOLAM HCL/PF 2 MG/2 ML VIAL. IV ONE (14:15)
[2018-10-18] MEDS ORDERED: IODIXANOL 320 MG/ML 100 ML VIAL. IART ONE (14:15)
[2018-10-18] MEDS ORDERED: NITROGLYCERIN 200 MCG/2 ML SYRINGE FOR CATH/VASC LAB. IART ONE (14:15)
[2018-10-18] MEDS ORDERED: LIDOCAINE 1% PF 2 ML VIAL. INJ ONE (14:15)
[2018-10-18] MEDS ORDERED: HEPARIN for IV BOLUS 10,000 UNIT/10 ML VIAL. IART ONE (14:15)
[2018-10-18] MEDS ORDERED: HEPARIN for IV BOLUS 10,000 UNIT/10 ML VIAL. IV ONE (14:15)
[2018-10-18] MEDS ORDERED: ADENOSINE 90 MG/30 ML VIAL. IV ONE (14:40)
[2018-10-18] MEDS ORDERED: ADENOSINE 90 MG in IV NORMAL SALINE 50ML 90 ML IV ONE (15:00)
--- NOTE | 2018-10-18 15:54 | CARD ---
MR#: [id number] Date of Study: 10/18/2018 Ordering Physician: RHIANNA SEVERINO, Referring Physician: RHIANNA SEVERINO, Tech: RT Elroy (Viktoria) KARINA APPROVED REPORT Technologist: RT Elroy (R) KARINA Nurse: Randa Bains R.N. Procedure(s) performed: MODERATE SEDATION 81 minutes CONTRAST 89 CC'S VISIPAQUE DOSE 130.0 Gycm2 fluoro time 9.1 minutes LHC, Coronary angiography PCI of the LAD iFR of the LAD HISTORY The patient is a 68 year-old female with a history of : coronary artery disease, hypertension, dyslip idemia. INDICATION The indication(s) include : STEMI , presenting for staged PCI of the LAD. . PROCEDURE NARRATIVE INFORMED CONSENT: After explaining the risks and benefits of the procedure and alternatives, informed consent was obtained. The patient was brought electively to the cardiac catheterization lab. A timeout was performed confi rming the patient's name, date of , procedure, and site of procedure. All necessary personnel w ere wearing the appropriate protective equipment and radiation monitor devices. (See nursing notes for medications administered). ACCESS: The right wrist was sterilely prepped and draped in the usual fashion. The right wrist was infiltrat ed with 1 mL of 2% lidocaine for subcutaneous anesthesia. A 6 Latvian Terumo glide sheath was inserte d into the right radial artery without difficulty. CORONARY ANGIOGRAPHY: Right and left coronary angiography was performed using a 6Fr TIG 4.0 catheter and EBU 3.5 guide cat heter. Left ventricular end diastolic pressure was obtained with a pigtail catheter and pullback was performed. All catheter exchanges and advancements were performed over a guidewire. FINDINGS: HEMODYNAMICS: LVEDP 27 mm Hg No gradient on LV to aortic pullback. AO: 128/78 LEFT VENTRICULOGRAM: Deferred due to known normal EF by Echo. CORONARY ANGIOGRAPHY: LM is a large caliber vessel with normal angiographic appearance. LAD is a large caliber vessel with a proximal 50% stenosis, followed by a proximal to mid 70-80% sten osis, and a distal 50% stenosis. These stenoses were relatively unchanged 48 hours after her inferior STEMI presentation. D1 is a moderate caliber vessel with mild luminal irregularities. LCx is a moderate caliber non-dominant vessel with normal angiographic appearance. OM1 is a moderate caliber vessel with a mid 50-60% stenosis. RCA is a large caliber dominant vessel with a widely patent mid stent. RPDA and RPL are moderate caliber vessels with normal angiographic appearance. INTERVENTIONAL TECHNIQUE: PCI OF THE MID LAD, iFR of the distal LAD, IVUS of the mid LAD/proximal LAD Heparin was used for an to regulation. The patient was continued on aspirin and Effient therapy. Thro [facility] a 6 Latvian EBU 3.5 guide catheter a 0.014 inch pro-water wire was advanced to the distal LAD. Bal loon angioplasty was performed with a 3.0 x 20 mm compliant balloon. The lesion was then stented with a 3.25 x 28 mm Alpine drug-eluting stent. Prior to the stenting the vessel was imaged by intravascul ar ultrasound and minimal luminal area in the proximal LAD was greater than 4 and the vessel size was approximated at 3.25 mm to 3.75 mm in diameter in the area of interest. Subsequent only, the stent w as postdilated with a 4 mm noncompliant balloon in the proximal and mid segments. Repeat intravascula r ultrasound revealed excellent stent expansion with excellent apposition to the vessel albrecht. Subseq uently, it was felt that the mid to distal LAD lesions were nonsignificant and therefore an ischemic evaluation was performed in the catheterization laboratory. Intracoronary nitroglycerin was administe red. The pro-water wire was removed and a IFR wire was advanced to the distal LAD. After appropriate normalization and IFR value of 0.89-0.90 was obtained. Due to the indeterminate range a FFR study was also performed. Intravenous adenosine infusion at 140 mcg/kg/m was administered and a FFR value of 0 .8 to was obtained for the mid and distal LAD lesions. Therefore further intervention was deferred on these lesions. Final angiography demonstrated excellent stent expansion with SHERRY-3 flow in the vess el and no evidence of guider wire-related complications. CLOSURE: At case completion the right radial sheath was removed and a Terumo radial band was applied with 13 m l of air. COMPLICATIONS: The patient tolerated the procedure well and there were no immediate complications. Conclusion 1. Elevated left ventricular end-diastolic pressure consistent with acute on chronic diastolic heart failure 2. Three-vessel coronary artery disease. 3. Patent RCA stent 4. Successful PCI of the LAD with implantation of a 3.25 x 28 mm Alpine drug-eluting stent, postdilat ed with a 4 mm noncompliant balloon. 5. Negative IFR of the mid to distal LAD lesions. Recommendations Continue aspirin and Effient therapy. Continue high-dose statin therapy. Medical management of mid to distal LAD stenosis and left circumflex stenosis of approximately 50-60% Consider stress testing on an outpt basis if any further symptoms. Signed by : Lopez Cash, Electronically Approved : 10/18/2018 15:53:46
[2018-10-18] MEDS: ACETAMINOPHEN 325 MG TABLET. PO PRN ×2 (16:29→22:51)
[2018-10-18] MEDS: ATORVASTATIN CALCIUM 20 MG TABLET PO SCH (22:36)
[2018-10-19 03:45] VITALS: BP 139/73
[2018-10-19] MEDS: LEVOTHYROXINE 25 MCG TABLET. PO SCH (06:00)
[2018-10-19 07:00] VITALS: BP 133/64
[2018-10-19] MEDS: ASPIRIN ENTERIC COATED 81 MG TABLET.DR. PO SCH (08:50)
[2018-10-19] MEDS: PRASUGREL 10 MG TABLET. PO SCH (08:51)
[2018-10-19 08:52] VITALS: BP 133/64
[2018-10-19] MEDS: METOPROLOL TART IMMED RELEASE 25 MG TABLET. PO SCH (08:52)
--- NOTE | 2018-10-19 09:58 | PDOC ---
PROGRESS NOTES Subjective Subjective feels good,ready to go home Objective Objective Vital Signs Date Time Temp Pulse Resp B/P (MAP) Pulse Ox O2 Delivery O2 Flow Rate FiO2 10/19/18 08:52 71 133/64 10/19/18 08:00 Room Air 10/19/18 07:00 98.3 16 93 98.3 10/18/18 16:17 92.0 Intake and Output 10/19/18 07:00 Intake Total 640 ml Balance 640 ml Intake Oral 640 ml # Voids 3 # Bowel Movements 2 Physical Exam Abdomen: Normal bowel sounds, Soft Heart: Regular rate, Normal S1 Extremities: No clubbing General: Alert HEENT: Atraumatic Lungs: Clear to auscultation MUSCULOSKELETAL: No deformity Neck: Supple Neuro: Normal speech Psych/Mental Status: Mental status NL Skin: No breakdown Diagnosis Problem List Problems Medical Problems: (1) STEMI (ST elevation myocardial infarction) Status: Acute Assessment Assessment Problems Medical Problems: (1) STEMI (ST elevation myocardial infarction) Status: Acute FINAL IMPRESSION: 1. Acute inferior wall myocardial infarction, ST-elevation myocardial infarction. 2. Hypertension. 3. History of anemia. 4 CAD, 3 vessel disease PLAN: Successful PCI of the LAD with implantation of a 3.25 x 28 mm Alpine drug- eluting stent, postdilated with a 4 mm noncompliant balloon. Emergent cardiac cath and placement of MARY to RCA.3 days ago d/c home today This patient was taken to cardiac catheterization last night and the patient had a 3-vessel disease, had inferolateral myocardial infarction secondary to right coronary artery occlusion and had a stent placed, drug-eluting stent and she had planned procedure for LAD and circumflex in the next 48 hours. The patient is on aspirin, cholesterol medication and beta samuel at the present time. Plan Plan of Care Problems Medical Problems: (1) STEMI (ST elevation myocardial infarction) Status: Acute Comment Review of Relevant I have reviewed the following items les (where applicable) has been applied. Medications Current Medications Adenosine (Adenoscan) 90 mg STK-MED ONCE IV ; Start 10/18/18 at 14:40; Stop 10/18/18 at 14:41; Status DC Adenosine 90 mg/ Sodium Chloride 120 ml @ 200 mls/hr 1X ONCE IV Last administered on 10/18/18at 14:58; Start 10/18/18 at 15:00; Stop 10/18/18 at 15:35; Status DC Fentanyl Citrate (Fentanyl 2ml Vial) 100 mcg 1X ONCE IV Last administered on 10/18/18at 15:00; Start 10/18/18 at 14:15; Stop 10/18/18 at 14:16; Status DC Fentanyl Citrate (Fentanyl 2ml Vial) 100 mcg STK-MED ONCE .ROUTE ; Start 10/18/18 at 13:40; Stop 10/18/18 at 13:41; Status DC Heparin Sodium (Porcine) (Heparin Sodium) 2,500 unit 1X ONCE IART Last administered on 10/18/18at 15:01; Start 10/18/18 at 14:15; Stop 10/18/18 at 14:16; Status DC Heparin Sodium (Porcine) (Heparin Sodium) 3,500 unit 1X ONCE IV Last administered on 10/18/18at 15:02; Start 10/18/18 at 14:15; Stop 10/18/18 at 14:16; Status DC Heparin Sodium (Porcine) (Heparin Sodium) 10,000 unit STK-MED ONCE .ROUTE ; Start 10/18/18 at 13:41; Stop 10/18/18 at 13:42; Status DC Heparin Sodium/ Sodium Chloride 1,000 ml @ As Directed STK-MED ONCE .ROUTE ; Start 10/18/18 at 13:09; Stop 10/18/18 at 13:10; Status DC Heparin Sodium/ Sodium Chloride (HEPARIN for ARTERIAL LINE FLUSH) 1,000 unit 1X ONCE IART Last administered on 10/18/18at 15:02; Start 10/18/18 at 14:15; Stop 10/18/18 at 14:16; Status DC Iodixanol (Visipaque 320) 100 ml 1X ONCE IART Last administered on 10/18/18at 14:57; Start 10/18/18 at 14:15; Stop 10/18/18 at 14:16; Status DC Iodixanol (Visipaque 320) 100 ml STK-MED ONCE .ROUTE ; Start 10/18/18 at 13:01; Stop 10/18/18 at 13:02; Status DC Lidocaine HCl (Xylocaine-Mpf 1% 2ml Vial) 2 ml 1X ONCE INJ Last administered on 10/18/18at 15:00; Start 10/18/18 at 14:15; Stop 10/18/18 at 14:16; Status DC Lidocaine HCl (Xylocaine-Mpf 1% 2ml Vial) 2 ml STK-MED ONCE .ROUTE ; Start 10/18/18 at 13:01; Stop 10/18/18 at 13:02; Status DC Lidocaine HCl (Xylocaine-Mpf 1% 2ml Vial) 2 ml STK-MED ONCE .ROUTE ; Start 10/18/18 at 13:09; Stop 10/18/18 at 13:10; Status DC Midazolam HCl (Versed) 2 mg 1X ONCE IV Last administered on 10/18/18at 14:59; Start 10/18/18 at 14:15; Stop 10/18/18 at 14:16; Status DC Midazolam HCl (Versed) 2 mg STK-MED ONCE .ROUTE ; Start 10/18/18 at 13:41; Stop 10/18/18 at 13:42; Status DC Nitroglycerin (Nitroglycerin) 200 mcg 1X ONCE IART Last administered on 10/18/18at 14:58; Start 10/18/18 at 14:15; Stop 10/18/18 at 14:16; Status DC Nitroglycerin (Nitroglycerin) 200 mcg STK-MED ONCE .ROUTE ; Start 10/18/18 at 13:41; Stop 10/18/18 at 13:42; Status DC Verapamil HCl (Verapamil) 2.5 mg 1X ONCE IART Last administered on 10/18/18at 15:01; Start 10/18/18 at 14:15; Stop 10/18/18 at 14:16; Status DC Verapamil HCl (Verapamil) 5 mg STK-MED ONCE .ROUTE ; Start 10/18/18 at 13:41; Stop 10/18/18 at 13:42; Status DC Vitals/I & O Vital Sign - Last 24 Hours 10/18/18 10/18/18 10/18/18 10/18/18 11:00 15:00 15:00 15:01 Temp 98.3 99.1 98.3 99.1 Pulse 64 67 69 Resp 16 22 12 B/P (MAP) 145/63 (90) 110/52 (71) Pulse Ox 94 97 91 O2 Delivery Room Air Nasal Cannula Room Air O2 Flow Rate 2.0 10/18/18 10/18/18 10/18/18 10/18/18 15:05 15:15 15:30 15:45 Pulse 63 62 64 Resp 22 B/P (MAP) 117/57 (77) 124/60 (81) 108/50 (69) Pulse Ox 99 93 93 O2 Delivery Room Air 10/18/18 10/18/18 10/18/18 10/18/18 16:02 16:02 16:17 16:21 Pulse 66 66 67 67 B/P (MAP) 111/55 (73) 111/55 (73) 100/56 (71) 109/52 (71) Pulse Ox 93 92 O2 Delivery Room Air Room Air Room Air Room Air O2 Flow Rate 93.0 92.0 10/18/18 10/18/18 10/18/18 10/18/18 16:32 17:02 17:02 18:02 Pulse 66 64 64 62 B/P (MAP) 121/61 (81) 111/64 (80) 111/64 (80) 124/68 (86) Pulse Ox 94 92 92 94 O2 Delivery Room Air Room Air Room Air Room Air 10/18/18 10/18/18 10/18/18 10/18/18 19:20 20:00 22:37 23:15 Temp 98.4 98.4 98.4 98.4 Pulse 68 68 64 Resp 18 18 B/P (MAP) 110/57 (74) 110/57 115/60 (78) Pulse Ox 95 94 O2 Delivery Room Air Room Air Room Air 10/19/18 10/19/18 10/19/18 10/19/18 03:45 07:00 08:00 08:52 Temp 98.4 98.3 98.4 98.3 Pulse 68 71 71 Resp 18 16 B/P (MAP) 139/73 (95) 133/64 (87) 133/64 Pulse Ox 94 93 O2 Delivery Room Air Room Air Room Air Intake and Output 10/18/18 10/18/18 10/19/18 15:00 23:00 07:00 Intake Total 100 ml 540 ml Balance 100 ml 540 ml RHIANNA SEVERINO MD October 19, 2018 09:58
[2018-10-19] MEDS ORDERED: NITR0.4T SL (10:05)
[2018-10-19] MEDS ORDERED: ATOR20TA58 PO (10:05)
[2018-10-19] MEDS ORDERED: LEVO25TA55 PO (10:05)
[2018-10-19] MEDS ORDERED: PRAS10TA9 PO (10:05)
[2018-10-19] MEDS ORDERED: METO25TA4 PO (10:05)
[2018-10-19] MEDS ORDERED: ASPI-612 PO (10:05)
--- NOTE | 2018-10-19 10:12 | PDOC ---
Provider Note Provider Note Discharge summary dictated.#[id number]. RHIANNA SEVERINO MD October 19, 2018 10:12
--- NOTE | 2018-10-19 10:37 | PDOC ---
CARDIO Progress Notes Date and Time Date of Service 10/19/2018 Time of Evaluation 1015 Subjective Subjective: No Chest Pain, No shortness of breath, No Palpitations Vitals Vitals Vital Signs Date Time Temp Pulse Resp B/P (MAP) Pulse Ox O2 Delivery O2 Flow Rate FiO2 10/19/18 08:52 71 133/64 10/19/18 08:00 Room Air 10/19/18 07:00 98.3 16 93 98.3 10/18/18 16:17 92.0 Weight Weight [ ] Input and Output Intake and Output Intake and Output 10/19/18 06:59 Intake Total 640 ml Balance 640 ml Intake Oral 640 ml # Voids 3 # Bowel Movements 2 Physical Exam HEENT: Neck Supple W Full Motion Chest: Symmetric LUNGS: Clear to Auscultation Heart: RRR (SR) Abdomen: Soft N/T Extremities: No Calf Tenderness Neurology: alert, oriented, follow commands Other Exams right wrist arteriotomy site intact, no erythema, swelling, neurovascualr status to right hand intact. Left choulsder surgical incision intact and dry, well approximated with steristrips. Assessment Assessment 1. Inferior STEMI: S/P PCI/RCA MARY 2. CAD; S/P staged PCI/MARY to LAD. EF and WM nml. 3. Hypothyroidism: TSH not on goal, on replacement 4. DLP 5. DM2 vs hyperglycemia. Defer to PCP 6. S/P rLTSA: very recently, pain controlled. Recommendations 1. ECASA 81 mg with effient daily. 2. Medical management of mid to distal LAD stenosis and left circumflex stenosis of approximately 50-60%. outpt MPI if symptoms recur 3. Continue with secondary prevention. statin and metoprolol 4. Cardiac rehab 5. follow up with Dr. Cash on November 29 8:30 AM. 6. follow up with outpt ortho. GORDON VALDEZ APRN October 19, 2018 10:37
[2018-10-19] MEDS ORDERED: POTA10TA12 PO (11:28)
[2018-10-19] MEDS ORDERED: METO-239 PO (11:37)
--- NOTE | 2018-10-19 12:21 | NUR ---
Discharge Note: JAM WEI Discharge instructions and discharge home medications reviewed with Patient and a copy given. All questions have been answered and understanding verbalized. The following instructions and handouts were given: Atorvastatin, Cardiac rehab, Nitroglycerin, Prasugrel, Metoprolol, Levothyroxine Patient discharged to home via self transport.
--- NOTE | 2018-10-19 12:28 | DS ---
DATE OF DISCHARGE: 10/19/2018 REASON FOR ADMISSION TO THE HOSPITAL: Acute inferior wall NE, ST elevation NE. CONSULTATION: Dr. Cash. PROCEDURES DONE: Cardiac cath, angioplasty, stent placement x 2, echocardiogram. HOSPITAL COURSE: The patient is a 68-year-old female, patient of Dr. Velasco. She had a left shoulder surgery 2 weeks ago. She was having pain and shortness of breath, came to the Emergency Room. She was found to have an acute inferior wall NE with ST segment elevation in II, III, aVF. The patient was taken to cardiac labor contractor and the patient had a stent placed in right coronary artery and the patient had a staged procedure in the LAD. Alpine drug-eluting stent was placed in the LAD and the patient did well. She was discharged, ejection fraction 50-60%. The patient was placed on Effient and aspirin. FINAL DIAGNOSES: 1. Acute inferior wall myocardial infarction. 2. ST segment myocardial infarction. The patient had 2 stents placed, one in right coronary artery, second one in left anterior descending, a staged procedure. 3. Hypertension. 4. Hyperlipidemia. 5. Hypothyroidism. 6. Hypertension. 7. Recent left shoulder surgery, rotator cuff repair. DISPOSITION: Home. DISCHARGE MEDICATIONS: See MRAD for discharge medications. RHIANNA SEVERINO MD DR: ARPIT/nts JOB#: [id number] / [id number] dorina Velasco Dr.
== END 2018-10-19 12:27 | disposition home or self-care (01) | DRG 246 ==
LOC: ER 00:09 → 1 WEST ICU 00:25 → 2 NORTH 13:34
PROVIDERS: ADMIT Internal Medicine; ATTEND Internal Medicine
PROC: 027034Z Dilation of Coronary Artery, One Artery with Drug-eluting Intraluminal Device, Percutaneous Approach (ICD-10-PCS; 2018-10-16)
PROC: B2111ZZ Fluoroscopy of Multiple Coronary Arteries using Low Osmolar Contrast (ICD-10-PCS; 2018-10-16)
PROC: 3E033PZ Introduction of Platelet Inhibitor into Peripheral Vein, Percutaneous Approach (ICD-10-PCS; 2018-10-16)
PROC: 027034Z Dilation of Coronary Artery, One Artery with Drug-eluting Intraluminal Device, Percutaneous Approach (ICD-10-PCS; principal; 2018-10-18)
PROC: 4A023N7 Measurement of Cardiac Sampling and Pressure, Left Heart, Percutaneous Approach (ICD-10-PCS; 2018-10-18)
PROC: B2111ZZ Fluoroscopy of Multiple Coronary Arteries using Low Osmolar Contrast (ICD-10-PCS; 2018-10-18)
PROC: 4A033BC Measurement of Arterial Pressure, Coronary, Percutaneous Approach (ICD-10-PCS; 2018-10-18)
PROC: B240ZZ3 Ultrasonography of Single Coronary Artery, Intravascular (ICD-10-PCS; 2018-10-18)
DX: I21.11 ST elevation (STEMI) myocardial infarction involving right coronary artery (principal); I50.33 Acute on chronic diastolic (congestive) heart failure; E11.9 Type 2 diabetes mellitus without complications; I25.10 Atherosclerotic heart disease of native coronary artery without angina pectoris; E03.9 Hypothyroidism, unspecified; E78.00 Pure hypercholesterolemia, unspecified; E78.5 Hyperlipidemia, unspecified; K21.9 Gastro-esophageal reflux disease without esophagitis; Z96.612 Presence of left artificial shoulder joint; Z83.3 Family history of diabetes mellitus; Z90.710 Acquired absence of both cervix and uterus; Z90.49 Acquired absence of other specified parts of digestive tract; Z79.899 Other long term (current) drug therapy; Z88.5 Allergy status to narcotic agent; I11.0 Hypertensive heart disease with heart failure
CPT/HCPCS: 36415; 37252; 71045; 80048; 80053; 80061; 80076; 81001; 82550; 82553; 82962; 83690; 83735; 83880; 84443; 84484; 85025; 85610; 85730; 87641; 92928; 93005; 93306; 93454; 93571; 96374; 96375; 99152; 99153; C1725; C1769; C1874; C1887; C1892; J0153; J1644; J2250; J2405; J3010; J3480; J3490; J7040; Q9967; 99285-25; J3246

== ENCOUNTER → 2019-02-24 | Outpatient (CLI) | payer MEDICARE ==
[~2019-02-24] MED LIST changes: +CLOP75TA PO; +ERGO500027 PO; +LEVO25TA55 PO; +METF500T11 PO; -METF500T9 PO; +METO-239 PO; +METO25TA4 PO; +NITR0.4T24 SL; +POTA10TA12 PO; +PRAS10TA9 PO
--- NOTE | 2019-02-24 20:56 | PAIN ---
DATE OF SERVICE: 02/24/2019 PROGRESS NOTE FOR PAIN CLINIC DIAGNOSES: Lumbar radiculopathy with lumbar degenerative disk disease. HISTORY OF PRESENT ILLNESS: The patient is a 68-year-old female who returns for followup status post lumbar epidural steroid injections x 3, most recently 06/26/2018. The patient did very well with about a 50% improvement overall. The patient reports that she was doing quite well. She has some pain returning now in the low back into the right lower extremity as it was previously rated a 10 on a scale of 10 at its worst, average and least and is a 10 today. The patient reports it is aching, sharp, shooting, severe, unbearable, worse with walking, standing, change in positions, wakes her from sleep at least every 5-6 hours at night. Initially, she was doing much better with distance walking, doing household activities with greater ease and comfort, but she has had myocardial infarctions. She has not had stents placed and is on Plavix. PHYSICAL EXAMINATION: VITAL SIGNS: Blood pressure 156/86, pulse 74, respirations 16, temperature 97.0 degrees Fahrenheit and weight is 198 pounds. GENERAL: The patient is awake, alert, oriented, appropriate, very pleasant demeanor. HEENT: Shows normocephalic, atraumatic. Extraocular movements are intact and symmetrical. Oral cavity: Mucous membranes moist and pink. NECK: Shows anterior throat supple. Neck shows full rotational motion of the cervical spine without significant difficulty. CHEST: Shows normal on inspection. Breath sounds are clear bilaterally. HEART: Shows S1, S2 clear. ABDOMEN: Soft, nontender, nondistended. BACK: Shows spine grossly in the midline. Lumbar paraspinous muscle shows normal lordotic curvature with palpation shows some moderate tenderness diffusely bilaterally in the upper, middle and lower distribution of paraspinous muscles, but only diffusely. The patient does have some bruising on the upper and lower extremities as she is now on Plavix. EXTREMITIES: Motor exam in the lower extremities shows 5/5 dorsiflexion, extension, quadriceps and hamstring. Deep tendon reflexes are 1+ patellar and tendo calcaneus tendons are equal. Posterior pulses are 1+ in the posterior tibial bilaterally. No peripheral edema is noted. Options were discussed with the patient. The patient's old chart was reviewed as her current medication regimen updated. Current review of systems updated today as well. We will check with the patient's vp foundation regarding availability of holding her Plavix; however, she has only been on it for about 3 months since her stents meantime, we will try Medrol Dosepak. The patient was given instruction as well as side effects to be aware of with the medication. We will continue with stretching and strengthening exercises as best she can as well as exercise as tolerated and walking. The patient will return to clinic after a Medrol Dosepak is completed and again if deemed safe and appropriate to hold her Plavix, we will proceed with lumbar epidural steroid injection. ANGELLA MACK MD DR: ROM/rebel JOB#: [id number] / [id number]
== END | disposition home or self-care (01) ==
LOC: PNCL 13:01
PROVIDERS: ATTEND Anesthesiology
DX: M51.16 Intervertebral disc disorders with radiculopathy, lumbar region (principal)
CPT/HCPCS: G0463

== ENCOUNTER → 2020-01-16 | Outpatient (CLI) | payer MEDICARE ==
[~2020-01-16] MED LIST changes: -ASPI-612 PO; +ASPI-886 PO; +FLUO10CA14 PO; -FLUO10CA7 PO; +FLUO20CA20 PO; -FLUO20CA8 PO; +METF-658 PO; -METF500T11 PO
--- NOTE | 2020-01-16 16:48 | RAD ---
DATE: 01/16/2020 12:49 PM EXAM: MAMMO SHANNAN DIARavin BILAT HISTORY: 69-year-old woman due for bilateral screening presents with a palpable lump in the superior right breast COMPARISON: 08/11/2018 bilateral mammogram Bilateral CC and MLO views of the breasts were performed. Bilateral breast tomosynthesis was performed in CC and MLO projections. This study was interpreted with the benefit of Computerized Aided Detection (CAD). FINDINGS: Breast Density: FATTY The Breast Parenchyma is primarily fatty replaced. Breast parenchyma level density A. The patient's reported area of palpable concern is in the superior periareolar right breast and is completely fatty replaced, showing no mammographic interval change. Given the completely negative mammographic findings and fatty breast tissue, additional imaging by ultrasound was considered unlikely to be of additional clinical benefit and is deferred in favor of clinical management and follow-up. No suspicious masses, microcalcifications or architectural distortion is present to suggest malignancy in either breast. The visualized axillae are unremarkable. IMPRESSION: No mammographic evidence of malignancy. No mammographic correlate to the area of palpable concern in the patient's right breast. BI-RADS CATEGORY: 1 NEGATIVE RECOMMENDED FOLLOW-UP: 12M 12 MONTH FOLLOW-UP Annual screening mammography is recommended, unless clinically indicated sooner based on symptoms or change in physical exam. Clinical management of the patient's reported area of palpable concern is recommended. PQRS compliance statement: Patient information was entered into a reminder system with a target due date for the next mammogram. Mammography is a sensitive method for finding small breast cancers, but it does not detect them all and is not a substitute for careful clinical examination. A negative mammogram does not negate a clinically suspicious finding and should not result in delay in biopsying a clinically suspicious abnormality. "Our facility is accredited by the [employer] Mammography Program."
== END | disposition home or self-care (01) ==
LOC: MAMMO 12:46
PROVIDERS: ATTEND Internal Medicine
DX: R92.2 Inconclusive mammogram (principal)
CPT/HCPCS: 77066; G0279; 77062

== ENCOUNTER → 2020-08-23 | Outpatient (CLI) | payer MEDICARE ==
[~2020-08-23] MED LIST changes: -FLUO10CA14 PO; +FLUO10CA15 PO; +HYDR-2761 PO; +ISOS30TA68 PO; +LEVO50TA78 PO
== END ==
LOC: LAB 10:40
PROVIDERS: ATTEND Internal Medicine Cardiovascular Disease
DX: Z01.812 Encounter for preprocedural laboratory examination (principal); Z20.822 Contact with and (suspected) exposure to COVID-19; R07.9 Chest pain, unspecified
CPT/HCPCS: U0003

== ENCOUNTER → 2020-12-19 | Outpatient (CLI) | payer MEDICARE ==
[2020-08-28 11:00] VITALS: BP 148/85
[~2020-12-19] MED LIST changes: +RANO500T2 PO
[2020-12-19 10:58] LABS: BASO # 0.1 x10^3/uL (0.0-0.2); BASO % 1 % (0-3); EOS # 0.2 x10^3/uL (0.0-0.7); EOS % 2 % (0-3); HEMATOCRIT 38.3 % (36.0-47.0); HEMOGLOBIN 12.3 g/dL (12.0-15.5); LYMPH # 1.5 x10^3/uL (1.0-4.8); LYMPH % 21 % (24-48); MEAN CORPUSCULAR HEMOGLOBIN 28 pg (25-35); MEAN CORPUSCULAR HGB CONC 32 g/dL (31-37); MEAN CORPUSCULAR VOLUME 88 fL (79-100); MONO # 0.5 x10^3/uL (0.0-1.1); MONO % 8 % (0-9); NEUT # 4.9 x10^3/uL (1.8-7.7); NEUT % 68 % (31-73); PLATELET COUNT 372 x10^3/uL (140-400); RED BLOOD COUNT 4.34 x10^6/uL (3.50-5.40); RED CELL DISTRIBUTION WIDTH 14.5 % (11.5-14.5); WHITE BLOOD COUNT 7.2 x10^3/uL (4.0-11.0)
[2020-12-19 11:19] LABS: ALBUMIN 3.5 g/dL (3.4-5.0); ALBUMIN/GLOBULIN RATIO 0.9 (1.0-1.7); POTASSIUM 3.7 mmol/L (3.5-5.1); TOTAL BILIRUBIN 0.4 mg/dL (0.2-1.0); TOTAL PROTEIN 7.5 g/dL (6.4-8.2)
== END ==
LOC: LAB 10:23
PROVIDERS: ATTEND Internal Medicine Cardiovascular Disease
DX: I25.10 Atherosclerotic heart disease of native coronary artery without angina pectoris (principal); D64.9 Anemia, unspecified
CPT/HCPCS: 36415; 80053; 82728; 83540; 85025

== ENCOUNTER 2020-12-24 09:37 | Outpatient (CLI) | payer MEDICARE ==
[~2020-12-24] VITALS: Ht 162.6 cm; Wt 86.8 kg
[2020-12-24] VITALS (10 sets, daily range): BP systolic 108–157; BP diastolic 48–84
[~2020-12-24 09:37] MED LIST changes: -RANO500T2 PO
[2020-12-24] MEDS ORDERED: fentaNYL PF VIAL 100 MCG/2 ML VIAL ONE (12:10)
[2020-12-24] MEDS ORDERED: MIDAZOLAM HCL/PF 5 MG/5 ML VIAL. ONE (12:10)
[2020-12-24] MEDS ORDERED: NITROGLYCERIN 200 MCG/2 ML SYRINGE FOR CATH/VASC LAB. ONE ×2 (12:11→14:50)
[2020-12-24] MEDS ORDERED: HEPARIN for IV BOLUS 10,000 UNIT/10 ML VIAL. ONE (12:11)
[2020-12-24] MEDS ORDERED: VERAPAMIL 5 MG/2 ML VIAL. ONE (12:11)
[2020-12-24] MEDS ORDERED: IODIXANOL 320 MG/ML 100 ML VIAL. ONE ×2 (12:22→13:44)
[2020-12-24] MEDS ORDERED: LIDOCAINE 1% Multi-Dose 20 ML VIAL. ONE (12:22)
[2020-12-24] MEDS ORDERED: HEPARIN for IV BOLUS 10,000 UNIT/10 ML VIAL. IART ONE (13:30)
[2020-12-24] MEDS ORDERED: VERAPAMIL 5 MG/2 ML VIAL. IART ONE (13:30)
[2020-12-24] MEDS ORDERED: IODIXANOL 320 MG/ML 100 ML VIAL. IART ONE (13:30)
[2020-12-24] MEDS ORDERED: LIDOCAINE 1% Multi-Dose 20 ML VIAL. INJ ONE (13:30)
[2020-12-24] MEDS ORDERED: HEPARIN for IV BOLUS 10,000 UNIT/10 ML VIAL. IV ONE (13:30)
[2020-12-24] MEDS ORDERED: NITROGLYCERIN 200 MCG/2 ML SYRINGE FOR CATH/VASC LAB. IART ONE (13:30)
[2020-12-24] MEDS ORDERED: fentaNYL PF VIAL 100 MCG/2 ML VIAL IV ONE (13:30)
[2020-12-24] MEDS ORDERED: MIDAZOLAM HCL/PF 5 MG/5 ML VIAL. IV ONE (13:30)
[2020-12-24] MEDS ORDERED: NITROGLYCERIN 200 MCG/2 ML SYRINGE FOR CATH/VASC LAB. ICAR ONE (13:45)
--- NOTE | 2020-12-24 14:50 | NUR ---
Pt returned from cardiac cath with TR band to R wrist and Safeguard pressure assist device to R neck. The venous site to the R neck continues to have oozing in spite of pressure device. Safeguard removed and manual pressure held with HOB up. Unable to get bleeding to stop. Dr Cash notified of ongoing bleeding. MD to bedside and 2% lidocaine with epinephrine injected at site, with another 5 minutes of pressure held and hemostasis achieved. Pressure dressing applied to R neck site. Addendum: 12/24/20 at 1558 by EDEN BRITO RN 1550 site to R neck remains clean and dry. TR band deflation continues. PRATIMA MORIN
[2020-12-24] MEDS ORDERED: LIDOCAINE 2%/EPI 1:100,000 20 ML VIAL. ONE (15:05)
[2020-12-24] MEDS ORDERED: LIDOCAINE 2%/EPI 1:100,000 20 ML VIAL. INJ ONE (15:30)
[2020-12-24] MEDS ORDERED: RANO500T2 PO (15:43)
[2020-12-24] MEDS ORDERED: ISOS30TA68 PO (15:43)
--- NOTE | 2020-12-24 16:29 | NUR ---
TR band removed. Arm board reapplied. discharge teaching done at bedside with family present. New prescriptions reviewed. Pt ambulated and tolerated PO. Pt home with family in private vehicle.
--- NOTE | 2020-12-24 19:06 | CARD ---
MR#: [id number] Date of Study: 12/24/2020 Ordering Physician: JATIN JEFF, Referring Physician: JATIN JEFF, Tech: Chun Cage RT(R)() APPROVED REPORT Technologist: Chun Cage RT(R)() Nurse: Miesha Sierra RN Procedure(s) performed: FL TIME: 16.4 MINS DOSE: 121 GYCM2 CONTRAST: 154 ML MODERATE SEDATION: 90 minutes RHC, LHC, Coronary angiography iFR of the LAD, iFR of the RCA [facility] Clinical Frailty Scale [facility] Clinical Frailty Scale: Moderately Frail Heart Failure Heart Failure: Yes If Yes, Newly Diagnosed: No If Yes, HF Type: Diastolic If Yes, NYHA Class: Class II CASE TECHNIQUE IV conscious sedation was used throughout procedure with appropriate monitoring and was performed in the presence of a registered nurse who was an independent trained observer other than the physician p erforming the procedure. During this case, Fluoroscopy and low osmolar contrast were used for imaging . Specimen(s) Removed: N/A Estimated Blood loss: 20 cc's. PROCEDURE NARRATIVE Clinical information: 70-year-old woman with known history of diabetes and coronary artery disease who underwent a PCI to t he proximal LAD approximately 3 months ago presented to the office in the setting of worsening exerti onal dyspnea and pain. Due to concern for stent restenosis a decision was made to take the patient b ack to the catheterization laboratory for further evaluation. The patient also underwent a right hea rt catheterization due to severe debilitating exertional dyspnea. Procedure details: After appropriate informed consent the right wrist and right neck were prepped and draped in usual st erile fashion. Under 1% lidocaine local anesthesia a 8 Bulgarian sheath was placed in the right interna l jugular vein via ultrasound guidance. Next a 7.5 Bulgarian PA catheter was advanced to the right hear t chambers and pressures and saturations were obtained. Attention was then turned to the left heart catheterization. Under 1% lidocaine local anesthesia a 6 Bulgarian sheath was placed in the right radia l artery. Diagnostic angiography was then performed with a 6 Bulgarian TIG catheter. Findings: Hemodynamics: Aorta 170/90 LVEDP 13 mmHg No LV to aortic pullback gradient Right heart catheterization: RA 7 mmHg RV 39/3/6 PA 37/15/25 Wedge 10 PA saturation 76%, FA saturation 97% Nancy cardiac output 5.1 L/min, cardiac index 2.7 Coronary angiography: Left main is a large-caliber vessel with normal angiographic appearance LAD is a large-caliber vessel with a patent overlapping proximal and mid stents. The mid LAD has a 5 0% stenosis Left circumflex is a moderate caliber nondominant vessel with proximal 30% stenosis OM1 is a moderate caliber vessel with a long proximal 50 to 70% stenosis RCA is a large caliber dominant vessel with patent mid stent. The distal vessel has no significant d isease. Interventional technique: Based on the patient's presenting symptoms and concern for residual ischemia decision was made to per form a FFR of the RCA and LAD. Heparin was used for anticoagulation. Through a 6 Bulgarian JR4 guide c atheter a [place] IFR wire was advanced to the distal RCA after appropriate normalization. There was initial catheter dampening with a JR4 guide although this did not occur with a 6 Bulgarian TIG catheter . The IFR of the right coronary artery was 0.99 after nitroglycerin administration. Attention was t hen turned towards the LAD and circumflex vessels. Through a 6 Bulgarian EBU 3.5 guide catheter a IFR w omi was placed in the distal LAD. The LAD IFR was 0.98. Initial attempts for a IFR in the left circ umflex were unsuccessful due to significant tortuosity of the vessel therefore further intervention w as deferred. Final angiography demonstrated no evidence of guide or wire related complications in th e right and left coronary arteries. At case completion the right IJ sheath was removed and hemostasis was achieved via manual compression . The right wrist sheath was removed and hemostasis was achieved via a Terumo radial band inflated t o 11 mL of air. No acute complications were noted. Conclusion 1. Normal biventricular filling pressures 2. No evidence of pulmonary hypertension 3. Normal cardiac output 4. Patent stents in the RCA and LAD with unchanged residual coronary disease 5. Negative IFR of the RCA 6. Negative IFR of the LAD Recommendations 1. Prior to today's procedure the patient had a critical proximal LAD stenosis. This was stented an d today the stent appears to be widely patent. Despite this the patient has not had any significant improvement. Her residual LAD and RCA disease appears to be nonischemic with a negative IFR is noted . The patient does have moderate to severe left circumflex disease but given that she has not had an y significant improvement with her LAD stent there is low likelihood of any significant improvement w ith PCI to a nondominant left circumflex. Given the significant tortuosity of the vessel it was felt that the risk of PCI would outweigh the benefits. 2. We will plan for initiation of Imdur and Ranexa therapies and determine if she has any significan t improvement. If not we will consider referral to pulmonary service and continue initiation of card iac rehabilitation. 3. Supportive care for now Signed by : Jatin Jeff, Electronically Approved : 12/24/2020 19:05:40
== END 2020-12-24 16:52 | disposition home or self-care (01) ==
LOC: CCL 09:37
PROVIDERS: ATTEND Internal Medicine Cardiovascular Disease
DX: I25.110 Atherosclerotic heart disease of native coronary artery with unstable angina pectoris (principal); E11.9 Type 2 diabetes mellitus without complications; I10 Essential (primary) hypertension; E78.00 Pure hypercholesterolemia, unspecified; K21.9 Gastro-esophageal reflux disease without esophagitis; M19.90 Unspecified osteoarthritis, unspecified site; E03.9 Hypothyroidism, unspecified; Z90.49 Acquired absence of other specified parts of digestive tract; Z90.710 Acquired absence of both cervix and uterus; Z98.890 Other specified postprocedural states; Z79.899 Other long term (current) drug therapy; Z79.82 Long term (current) use of aspirin; Z79.84 Long term (current) use of oral hypoglycemic drugs; Z88.6 Allergy status to analgesic agent; Z88.8 Allergy status to other drugs, medicaments and biological substances
CPT/HCPCS: 76937; 93460; 93571; 93572; 99152; 99153; C1769; C1773; C1887; C1892; C1894; J1644; J2250; J3010; J3490; Q9967; 93456